=== PATIENT | female | born 1995 | race Caucasian/White ===

== ENCOUNTER → 2016-08-09 | Outpatient (CLI) | payer OTHER ==
[2016-08-09 17:32] LABS: Peanut IgE <0.10 kU/L; Soybean IgE <0.10 kU/L
[2016-08-10 13:45] LABS: Beef IgE <0.35 kU/L (<0.35); Beef IgE Class CLASS 0; Pork IgE Class CLASS 0
[2016-08-10 13:46] LABS: Crab IgE <0.35 kU/L (<0.35); Crab IgE Class CLASS 0; Lettuce IgE Class CLASS 0; Salmon IgE <0.35 kU/L (<0.35); Salmon IgE Class CLASS 0
[2016-08-10 13:47] LABS: Egg Yolk IgE Class CLASS 0; Oat IgE Class CLASS 0; Onion IgE <0.35 kU/L (<0.35); Onion IgE Class CLASS 0; Yeast Bakers/Brew IgE <0.35 kU/L (<0.35); Yeast Bakers/Brew IgE Class CLASS 0
[2016-08-10 13:48] LABS: Avocado Class CLASS 0; Banana IgE Class CLASS 0; Celery IgE <0.35 kU/L (<0.35); Celery IgE Class CLASS 0; Chocolate IgE Class CLASS 0; Cow's Milk IgE Class CLASS 0; Egg White IgE <0.35 kU/L (<0.35); Gluten IgE Class CLASS 0; Hazelnut IgE <0.35 kU/L (<0.35); Hazelnut IgE Class CLASS 0; Kiwi IgE <0.35 kU/L (<0.35); Kiwi IgE Class CLASS 0; Lobster IgE <0.35 kU/L (<0.35); Lobster IgE Class CLASS 0; Peanut IgE <0.35 kU/L (<0.35); Potato IgE <0.35 kU/L (<0.35); Potato IgE Class CLASS 0; Soybean IgE <0.35 kU/L (<0.35)
[2016-08-10 13:49] LABS: Chicken IgE Class CLASS 0; Coffee IgE <0.35 kU/L (<0.35); Coffee IgE Class CLASS 0; Tea IgE <0.35 kU/L (<0.35); Tea IgE Class CLASS 0
== END | disposition home or self-care (01) ==
LOC: LABWHC1 11:27
PROVIDERS: ATTEND Otolaryngology
DX: L50.0 Allergic urticaria (principal)
CPT/HCPCS: 36415; 86003

== ENCOUNTER 2017-04-10 11:47 | Emergency (ER) | payer OTHER ==
[2017-04-10 12:19] VITALS: TEMP 98.2
[2017-04-10] MEDS ORDERED: METOCLOPRAMIDE 5 MG/ML 2 ML VIAL IVP STA (13:33)
[2017-04-10] MEDS ORDERED: SODIUM CHLORIDE 0.9% 1,000 ML IV STA (13:33)
[2017-04-10 14:01] LABS: Basophils % (A) 0 %; CH 31.2; Eosinophils # (A) 0.1 k/uL (0-0.7); Eosinophils % (A) 1 %; HCT 48.9 % (34.0-46.0); HDW 2.18; HGB 15.7 gm/dL (11.4-16.0); Luc # (Auto) 0.15; Luc % (Auto) 2; Lymphocytes # (A) 2.2 k/uL (1.0-4.8); Lymphocytes % (A) 26 %; MCH 31.4 pg (25.0-35.0); Mean Platelet Volume 7.2; Monocytes # (A) 0.5 k/uL (0-1.0); Monocytes % (A) 6 %; Neutrophils # (A) 5.4 k/uL (1.3-7.7); Neutrophils % (A) 65 %; RBC 4.99 m/uL (3.80-5.40); RDW 12.6 % (11.5-15.5); WBC 8.4 k/uL (3.8-10.6); WBC (Perox) 7.98
[2017-04-10 14:05] LABS: Appearance,Urine Cloudy (Clear); Bacteria,Urine Rare /hpf; Bilirubin,Urine Negative (Negative); Glucose,Urine (UA) Negative (Negative); Ketones,Urine Negative (Negative); Leukocyte Esterase,Urine Small (Negative); Nitrite,Urine Negative (Negative); Particle Count 4152; Protein,Urine Trace (Negative); RBC,Urine 1 /hpf (0-5); Squamous Epithelial Cell,Urine 10 /hpf (0-4); UA Billing (MACRO vs. MICRO) MICRO; Urobilinogen,Urine <2.0 mg/dL (<2.0); WBC,Urine 3 /hpf (0-5)
--- NOTE | 2017-04-10 14:08 | ED ---
General Adult HPI - General Chief complaint: Nausea/Vomiting/Diarrhea Stated complaint: Numb hands, face. Vomiting Time Seen by Provider: 04/10/17 13:26 Source: patient, RN notes reviewed Mode of arrival: ambulatory Limitations: physical limitation - History of Present Illness Initial comments: 22-year-old female presents emergency Department chief complaint of left-sided headache. Patient states she has a history of headaches. Patient states that she got her aura which is some numbness and tingling with nausea vomiting and then she developed her left-sided headache that is much like her normal headaches. Patient states she woke this morning with little bit of tunnel vision when she steps so that concerned her. Patient states she's had taken Tylenol but she is unable to keep it down so she thought that she should be seen. Patient denies any other symptoms at this time. Patient states her headache is moderate much like her typical headache to the left side of the head. Patient denies any recent fever, chills, shortness of breath, chest pain, back pain, abdominal pain, nausea vomiting, dysuria or hematuria, constipation or diarrhea, or any other current symptoms. - Related Data Home Medications Medication Instructions Recorded Confirmed Venlafaxine HCl ER [Effexor XR] 75 mg PO DAILY 04/10/17 04/10/17 Allergies Allergy/AdvReac Type Severity Reaction Status Date / Time adhesive tape AdvReac BLISTERS Verified 04/10/17 13:44 cinnamon AdvReac Nausea Verified 04/10/17 12:19 Review of Systems ROS Statement: Those systems with pertinent positive or pertinent negative responses have been documented in the HPI. ROS Other: All systems not noted in ROS Statement are negative. Past Medical History Past Medical History: Asthma History of Any Multi-Drug Resistant Organisms: None Reported Past Surgical History: No Surgical Hx Reported Past Anesthesia/Blood Transfusion Reactions: No Reported Reaction Past Psychological History: No Psychological Hx Reported Smoking Status: Never smoker Past Alcohol Use History: None Reported Past Drug Use History: None Reported - Past Family History Sister(s) History Unknown: Yes Additional Family Medical History / Comment(s): clinical depression General Exam - General Exam Comments Initial Comments: General: The patient is awake and alert, in no distress, and does not appear acutely ill. Eye: Pupils are equal, round and reactive to light, extra-ocular movements are intact; there is normal conjunctiva bilaterally. No signs of icterus. Ears, nose, mouth and throat: There are moist mucous membranes and no oral lesions. Neck: The neck is supple, there is no tenderness. Cardiovascular: There is a regular rate and rhythm. No murmur, rub or gallop is appreciated. Respiratory: Lungs are clear to auscultation, respirations are non-labored, breath sounds are equal. No wheezes, stridor, rales, or rhonchi. Gastrointestinal: Soft, non-distended, non-tender abdomen without masses or organomegaly noted. There is no rebound or guarding present. No CVA tenderness. Bowel sounds are unremarkable. Back: There is no tenderness to palpation in the midline. There is no obvious deformity. No rashes noted. Musculoskeletal: Normal ROM, no tenderness, There is no pedal edema. There is no calf tenderness or swelling. Sensation intact. Pulses equal bilaterally 2+. Neurological: CN II-XII intact, There are no obvious motor or sensory deficits. Coordination appears grossly intact. Speech is normal. Skin: Skin is warm and dry and no rashes or lesions are noted. Psychiatric: Cooperative, appropriate mood & affect, normal judgment. Limitations: physical limitation Course Vital Signs 04/10/17 12:16 Temperature 98.2 F Pulse Rate 60 Respiratory 18 Rate Blood Pressure 111/68 O2 Sat by Pulse 96 Oximetry Medical Decision Making - Medical Decision Making 22-year-old female presents emergency room chief complaint of left-sided headache.at this time patient's headache is completely resolved and she states that she is feeling much better. Nausea vomiting has subsided. We will discharge the patient home. We discussed follow-up return parameters all patient's questions. They state Isaak they're in agreement with plan. They' ll be discharged. - Lab Data Result diagrams: 04/10/17 13:50 04/10/17 13:50 Lab Results 04/10/17 04/10/17 04/10/17 Range/Units 13:50 13:50 13:50 WBC 8.4 (3.8-10.6) k/uL RBC 4.99 (3.80-5.40) m/uL Hgb 15.7 (11.4-16.0) gm/dL Hct 48.9 H (34.0-46.0) % MCV 98.0 (80.0-100.0) fL MCH 31.4 (25.0-35.0) pg MCHC 32.0 (31.0-37.0) g/dL RDW 12.6 (11.5-15.5) % Plt Count 310 (150-450) k/uL Neutrophils % 65 % Lymphocytes % 26 % Monocytes % 6 % Eosinophils % 1 % Basophils % 0 % Neutrophils # 5.4 (1.3-7.7) k/uL Lymphocytes # 2.2 (1.0-4.8) k/uL Monocytes # 0.5 (0-1.0) k/uL Eosinophils # 0.1 (0-0.7) k/uL Basophils # 0.0 (0-0.2) k/uL Sodium 141 (137-145) mmol/L Potassium 4.2 (3.5-5.1) mmol/L Chloride 103 (98-107) mmol/L Carbon Dioxide 28 (22-30) mmol/L Anion Gap 10 mmol/L BUN 13 (7-17) mg/dL Creatinine 0.64 (0.52-1.04) mg/dL Est GFR (MDRD) Af Amer >60 (>60 ml/min/1.73 sqM) Est GFR (MDRD) Non-Af >60 (>60 ml/min/1.73 sqM) Glucose 93 (74-99) mg/dL Calcium 9.9 (8.4-10.2) mg/dL Total Bilirubin 0.3 (0.2-1.3) mg/dL AST 27 (14-36) U/L ALT 36 (9-52) U/L Alkaline Phosphatase 70 (38-126) U/L Total Protein 8.1 (6.3-8.2) g/dL Albumin 4.7 (3.5-5.0) g/dL Urine Color Urine Appearance (Clear) Urine pH (5.0-8.0) Ur Specific [place] (1.001-1.035) Urine Protein (Negative) Urine Glucose (UA) (Negative) Urine Ketones (Negative) Urine Blood (Negative) Urine Nitrite (Negative) Urine Bilirubin (Negative) Urine Urobilinogen (<2.0) mg/dL Ur Leukocyte Esterase (Negative) Urine RBC (0-5) /hpf Urine WBC (0-5) /hpf Ur Squamous Epith Cells (0-4) /hpf Urine Bacteria (None) /hpf Urine HCG, Qual Not Detected (Not Detectd) 04/10/17 Range/Units 13:50 WBC (3.8-10.6) k/uL RBC (3.80-5.40) m/uL Hgb (11.4-16.0) gm/dL Hct (34.0-46.0) % MCV (80.0-100.0) fL MCH (25.0-35.0) pg MCHC (31.0-37.0) g/dL RDW (11.5-15.5) % Plt Count (150-450) k/uL Neutrophils % % Lymphocytes % % Monocytes % % Eosinophils % % Basophils % % Neutrophils # (1.3-7.7) k/uL Lymphocytes # (1.0-4.8) k/uL Monocytes # (0-1.0) k/uL Eosinophils # (0-0.7) k/uL Basophils # (0-0.2) k/uL Sodium (137-145) mmol/L Potassium (3.5-5.1) mmol/L Chloride (98-107) mmol/L Carbon Dioxide (22-30) mmol/L Anion Gap mmol/L BUN (7-17) mg/dL Creatinine (0.52-1.04) mg/dL Est GFR (MDRD) Af Amer (>60 ml/min/1.73 sqM) Est GFR (MDRD) Non-Af (>60 ml/min/1.73 sqM) Glucose (74-99) mg/dL Calcium (8.4-10.2) mg/dL Total Bilirubin (0.2-1.3) mg/dL AST (14-36) U/L ALT (9-52) U/L Alkaline Phosphatase (38-126) U/L Total Protein (6.3-8.2) g/dL Albumin (3.5-5.0) g/dL Urine Color Yellow Urine Appearance Cloudy H (Clear) Urine pH 8.0 (5.0-8.0) Ur Specific [place] 1.020 (1.001-1.035) Urine Protein Trace H (Negative) Urine Glucose (UA) Negative (Negative) Urine Ketones Negative (Negative) Urine Blood Negative (Negative) Urine Nitrite Negative (Negative) Urine Bilirubin Negative (Negative) Urine Urobilinogen <2.0 (<2.0) mg/dL Ur Leukocyte Esterase Small H (Negative) Urine RBC 1 (0-5) /hpf Urine WBC 3 (0-5) /hpf Ur Squamous Epith Cells 10 H (0-4) /hpf Urine Bacteria Rare H (None) /hpf Urine HCG, Qual (Not Detectd) Disposition Clinical Impression: Headache Disposition: HOME SELF-CARE Condition: Stable Instructions: Acute Headache (ED) Additional Instructions: Please use medication as discussed. Please follow up with family doctor if symptoms have not improved over the next two days. Please return to the emergency room if your symptoms increase or worsen or for any other concerns. Referrals: Farzad Guido MD [Primary Care Provider] - 1-2 days Time of Disposition: 14:48
[2017-04-10 14:14] LABS: ALT 36 U/L (9-52); AST 27 U/L (14-36); Alkaline Phosphatase 70 U/L (38-126); Anion Gap 10 mmol/L; Blood Urea Nitrogen 13 mg/dL (7-17); Calcium 9.9 mg/dL (8.4-10.2); Carbon Dioxide 28 mmol/L (22-30); Chloride 103 mmol/L (98-107); Glucose 93 mg/dL (74-99); Non-African American GFR(MDRD) >60 (>60 ml/min/1.73 sqM); Potassium 4.2 mmol/L (3.5-5.1); Sodium 141 mmol/L (137-145); Total Bilirubin 0.3 mg/dL (0.2-1.3); Total Protein 8.1 g/dL (6.3-8.2)
[2017-04-10 15:06] VITALS: BP 107/56; PULSE 65; RESP 16
== END 2017-04-10 15:06 | disposition home or self-care (01) ==
LOC: EC 11:47
DX: R51 Headache (principal); R11.2 Nausea with vomiting, unspecified; R20.2 Paresthesia of skin; Z91.048 Other nonmedicinal substance allergy status; Z91.018 Allergy to other foods; Z79.899 Other long term (current) drug therapy
CPT/HCPCS: 99284 ×2; 96374 ×2; 96361 ×2; 36415; 80053; 85025; 81001; 81025; 87086; J2765

== ENCOUNTER 2017-04-11 18:09 | Emergency (ER) | payer OTHER ==
[2017-04-11 18:35] VITALS: TEMP 98.3
[2017-04-11] MEDS ORDERED: SODIUM CHLORIDE 0.9% 1,000 ML IV ONE (19:19)
[2017-04-11] MEDS ORDERED: DEXAMETHASONE SOD PHOSPHATE 10 MG/ML 1 ML VIAL IV STA (19:19)
[2017-04-11] MEDS ORDERED: diphenhydrAMINE 50 MG/ML 1 ML VIAL IVP STA (19:19)
[2017-04-11] MEDS ORDERED: KETOROLAC 30 MG/ML 1 ML VIAL IVP STA (19:19)
[2017-04-11] MEDS ORDERED: METOCLOPRAMIDE 5 MG/ML 2 ML VIAL IVP STA (19:19)
--- NOTE | 2017-04-11 19:31 | ED ---
General Adult HPI - General Chief complaint: Dizziness Stated complaint: Dizzy/Numbness hands Time Seen by Provider: 04/11/17 19:06 Source: patient Mode of arrival: ambulatory Limitations: no limitations - History of Present Illness Initial comments: Patient is a 22-year-old female who presents with a chief complaint of "tunnel vision" and numbness in her hands and feet. Patient was seen at this facility by another provider yesterday for migraine headache. He states that the symptoms she is having today are typical of her migraine aura though she does not have a headache today. Her visit yesterday were reviewed, patient received a dose of Reglan, felt better, was discharged home. Patient denies any other symptoms. The patient wanted to be reevaluated today because normally her aura symptoms do not last this long. Patient admits to starting a new antidepressant one week ago and thinks that this may be contributing to her symptoms today. - Related Data Home Medications Medication Instructions Recorded Confirmed Venlafaxine HCl ER [Effexor XR] 75 mg PO DAILY 04/10/17 04/11/17 Albuterol Inhaler [Ventolin Hfa 1 - 2 puff INHALATION RT-Q6H PRN 04/11/17 Inhaler] Ibuprofen [Motrin] 400 mg PO TID PRN 04/11/17 04/11/17 Allergies Allergy/AdvReac Type Severity Reaction Status Date / Time adhesive tape Allergy Rash/Hives Verified 04/11/17 19:24 cinnamon AdvReac Abdominal Verified 04/11/17 19:24 Pain Review of Systems ROS Statement: Those systems with pertinent positive or pertinent negative responses have been documented in the HPI. ROS Other: All systems not noted in ROS Statement are negative. Constitutional: Denies: fever Eyes: Reports: vision change ENT: Denies: congestion Respiratory: Denies: cough Cardiovascular: Denies: chest pain Endocrine: Denies: fatigue Gastrointestinal: Denies: abdominal pain, nausea, vomiting Genitourinary: Denies: dysuria Musculoskeletal: Denies: back pain Skin: Denies: lesions Neurological: Reports: headache, numbness Psychiatric: Reports: as per HPI Past Medical History Past Medical History: Asthma History of Any Multi-Drug Resistant Organisms: None Reported Past Surgical History: No Surgical Hx Reported Past Anesthesia/Blood Transfusion Reactions: No Reported Reaction Past Psychological History: No Psychological Hx Reported Smoking Status: Never smoker Past Alcohol Use History: None Reported Past Drug Use History: None Reported - Past Family History Sister(s) History Unknown: Yes Additional Family Medical History / Comment(s): clinical depression General Exam Limitations: no limitations General appearance: alert, in no apparent distress Head exam: Present: atraumatic, normocephalic Eye exam: Present: normal appearance Neck exam: Present: normal inspection Respiratory exam: Present: normal lung sounds bilaterally Cardiovascular Exam: Present: regular rate, normal rhythm, normal heart sounds GI/Abdominal exam: Present: soft. Absent: distended, tenderness, guarding Rectal exam: Present: deferred Neurological exam: Present: alert, oriented X3, CN II-XII intact, normal gait, other (Patient has a negative Romberg, negative cerebellar testing.). Absent: motor sensory deficit Psychiatric exam: Present: normal affect, normal mood Skin exam: Present: warm, dry, intact Course Vital Signs 04/11/17 04/11/17 18:33 19:40 Temperature 98.3 F Pulse Rate 71 67 Respiratory 16 18 Rate Blood Pressure 127/80 99/58 O2 Sat by Pulse 98 97 Oximetry Medical Decision Making - Medical Decision Making Patient presents with chief complaint of tunnel vision, and numbness in her hands and feet. Patient is a history of migraine headaches for which the symptoms are a common aura. Patient was seen and treated for migraine headache yesterday. Patient denies any headache today though she states her prodromal symptoms persist. Patient recently started a new antidepressant which may be playing into patient's presentation today. Review of yesterday's visit reveals a normal laboratory examination. I discussed further testing with the patient today, specifically a computed tomography scan of the head, though I stated that given the patient's symptoms and her course of onset, it is less likely that there is a central neurologic problem. Patient and her mother would like to proceed with a CAT scan today. Patient will be given Toradol, Reglan, Benadryl, Decadron, and a liter of IV fluids or treatment of migraine symptoms. 8:[address] evaluation of the head is negative. On reexamination, patient states that her symptoms are improving. At this time, the patient and her mother are agreeable with discharge. They're instructed to follow up with primary care and neurology if needed. I discussed follow-up with the new antidepressant medication with the patient and advised that she be seen within the next few days. At this time, patient is stable for discharge. Disposition Clinical Impression: Numbness and tingling, Migraine headache with aura Disposition: HOME SELF-CARE Condition: Good Instructions: Migraine Headache (ED) Referrals: Farzad Guido MD [Primary Care Provider] - 1-2 days
[2017-04-11 19:46] VITALS: RESP 18
--- NOTE | 2017-04-11 20:28 | CT ---
EXAMINATION TYPE: CT brain wo con DATE OF EXAM: 04/11/2017 COMPARISON: 06/22/2016 HISTORY: Headache CT DLP: 945 mGycm. Automated Exposure Control for Dose Reduction was Utilized. TECHNIQUE: CT scan of the head is performed without contrast. FINDINGS: Ventricles have normal size. There is no mass effect nor midline shift. There is no sign of intracranial hemorrhage. The calvarium is intact. CONCLUSION: Negative CT scan of the brain. No change.
[2017-04-11 21:10] VITALS: BP 123/80; PULSE 82
== END 2017-04-11 21:14 | disposition home or self-care (01) ==
LOC: EC 18:09
DX: G43.109 Migraine with aura, not intractable, without status migrainosus (principal); Z79.899 Other long term (current) drug therapy; Z91.048 Other nonmedicinal substance allergy status
CPT/HCPCS: 99284 ×2; 96374 ×2; 96375 ×4; 96361 ×2; 70450; J1200; J1100; J2765; J1885

== ENCOUNTER → 2018-02-14 | Outpatient (CLI) | payer OTHER ==
[2018-02-14 18:10] LABS: Shrimp IgE <0.10 kU/L; Walnut IgE (Food) <0.10 kU/L
[2018-02-15 13:26] LABS: Crab IgE <0.35 kU/L (<0.35); Crab IgE Class CLASS 0
[2018-02-15 13:27] LABS: Beef IgE <0.35 kU/L (<0.35); Beef IgE Class CLASS 0; Pork IgE Class CLASS 0
[2018-02-15 13:28] LABS: Chicken IgE Class CLASS 0; Latex IgE Class CLASS 0; Lobster IgE <0.35 kU/L (<0.35); Lobster IgE Class CLASS 0; Salmon IgE <0.35 kU/L (<0.35); Salmon IgE Class CLASS 0; Yeast Bakers/Brew IgE <0.35 kU/L (<0.35)
[2018-02-15 13:29] LABS: Avocado Class CLASS 0; Banana IgE Class CLASS 0; Cow's Milk IgE Class CLASS 0; Egg White IgE <0.35 kU/L (<0.35); Hazelnut IgE <0.35 kU/L (<0.35); Hazelnut IgE Class CLASS 0; Kiwi IgE <0.35 kU/L (<0.35); Peanut IgE <0.35 kU/L (<0.35); Potato IgE <0.35 kU/L (<0.35); Potato IgE Class CLASS 0; Soybean IgE <0.35 kU/L (<0.35)
== END | disposition home or self-care (01) ==
LOC: LABWHC1 10:12
PROVIDERS: ATTEND Otolaryngology
DX: L50.0 Allergic urticaria (principal)
CPT/HCPCS: 36415; 86003

== ENCOUNTER → 2018-02-20 | Outpatient (CLI) | payer OTHER | END | disposition home or self-care (01) | LOC: LABWHC1 13:31 | PROVIDERS: ATTEND Otolaryngology | DX: L50.0 Allergic urticaria (principal) | CPT/HCPCS: 36415 ==

== ENCOUNTER 2018-03-26 13:31 | Emergency (ER) | payer OTHER ==
[2018-03-26] MEDS ORDERED: predniSONE 20 MG TAB PO STA (13:37)
[2018-03-26] MEDS ORDERED: FAMOTIDINE 20 MG TAB PO STA (13:38)
[2018-03-26 13:41] VITALS: RESP 18
--- NOTE | 2018-03-26 13:42 | ED ---
Allergic Reaction HPI - General Stated complaint: allergic reaction Time Seen by Provider: 03/26/18 13:33 Source: patient, RN notes reviewed Mode of arrival: EMS Limitations: no limitations - History of Present Illness Initial Comments: 22-year-old female presented emergency Department via EMS chief complaint ALLERGIC reaction. Patient states she was at [employer] eating a chicken nausea and states that she started feeling flushed and felt itchy all over. Patient states that this is beginning of her known ALLERGIC reactions that she' s had. She states she has ALLERGIC reaction to soy products. Patient had extensive evaluation by ENT in the past. Patient was given 50 mg of Benadryl IM states his symptoms are improving at this time. Denies any difficulty breathing typically swelling. - Related Data Home Medications Medication Instructions Recorded Confirmed No Known Home Medications 03/26/18 03/26/18 Allergies Allergy/AdvReac Type Severity Reaction Status Date / Time adhesive tape Allergy Rash/Hives Verified 03/26/18 13:46 cinnamon AdvReac Abdominal Verified 03/26/18 13:46 Pain soy AdvReac Abdominal Verified 03/26/18 13:46 Pain Review of Systems ROS Statement: Those systems with pertinent positive or pertinent negative responses have been documented in the HPI. ROS Other: All systems not noted in ROS Statement are negative. Past Medical History Past Medical History: Asthma History of Any Multi-Drug Resistant Organisms: None Reported Past Surgical History: No Surgical Hx Reported Past Anesthesia/Blood Transfusion Reactions: No Reported Reaction Past Psychological History: Anxiety Smoking Status: Never smoker Past Alcohol Use History: None Reported Past Drug Use History: None Reported - Past Family History Sister(s) History Unknown: Yes Additional Family Medical History / Comment(s): clinical depression General Exam Limitations: no limitations General appearance: alert, in no apparent distress Head exam: Present: atraumatic, normocephalic, normal inspection Eye exam: Present: normal appearance, PERRL, EOMI. Absent: scleral icterus, conjunctival injection, periorbital swelling ENT exam: Present: normal exam, normal oropharynx, mucous membranes moist, TM's normal bilaterally, normal external ear exam Neck exam: Present: normal inspection, full ROM. Absent: tenderness, meningismus, lymphadenopathy Respiratory exam: Present: normal lung sounds bilaterally. Absent: respiratory distress, wheezes, rales, rhonchi, stridor Cardiovascular Exam: Present: regular rate, normal rhythm, normal heart sounds. Absent: systolic murmur, diastolic murmur, rubs, gallop, clicks Skin exam: Present: warm, dry, intact, normal color, urticaria (Finger. Noted on her chest and anterior neck region). Absent: rash Course Vital Signs 03/26/18 03/26/18 03/26/18 13:36 14:06 14:13 Temperature 99.3 F Pulse Rate 88 69 Respiratory 18 18 18 Rate Blood Pressure 114/79 O2 Sat by Pulse 98 99 Oximetry Medical Decision Making - Medical Decision Making 22-year-old female presents emergency department for ALLERGIC reaction. Patient had improvement prior arrival with Benadryl IM. Patient was given additional prednisone and Pepcid emergency department. Patient is symptom- free. She'll continue Benadryl 50 mg every 6 hours at home return for any worsening symptoms. Patient does have an EpiPen at home. Disposition Clinical Impression: Allergic reaction Disposition: HOME SELF-CARE Condition: Stable Instructions: General Allergic Reaction (ED) Additional Instructions: Please return to the Emergency Department if symptoms worsen or any other concerns. Is patient prescribed a controlled substance at d/c from ED?: No Referrals: Farzad Guido MD [Primary Care Provider] - 1-2 days Time of Disposition: 14:21
[2018-03-26 14:34] VITALS: BP 105/70; PULSE 86; TEMP 98.7
== END 2018-03-26 14:32 | disposition home or self-care (01) ==
LOC: EC 13:31
DX: T78.1XXA Other adverse food reactions, not elsewhere classified, initial encounter (principal); Z91.018 Allergy to other foods; Z91.048 Other nonmedicinal substance allergy status
CPT/HCPCS: 99284; J7512

== ENCOUNTER → 2018-04-29 | Outpatient (CLI) | payer OTHER ==
--- NOTE | 2018-04-30 08:19 | USB ---
Reason for exam: clinical finding. History: Family history of breast cancer in paternal grandmother at age 50. Indicated problem(s): pain in the right breast. Physical Findings: Nurse Summary: right breast palpable 11 o'clock, 0.5 x 1cm, tender, movable, bilateral tenderness on exam (nurse ts). US Breast RT Right complete breast ultrasound includes all four quadrants, the retroareolar region and axilla. Finding demonstrates no cystic or solid lesion seen. These results were verbally communicated with the patient and result sheet given to the patient on 04/29/18. ASSESSMENT: Negative, BI-RAD 1 RECOMMENDATION: Clinical management of the right breast. Manage patient on a clinical basis.
== END | disposition home or self-care (01) ==
LOC: RADUSWWP 14:50
PROVIDERS: ATTEND Pediatrics
DX: N64.4 Mastodynia (principal)

== ENCOUNTER 2018-07-03 12:36 | Emergency (ER) | payer OTHER ==
[2018-07-03 13:11] VITALS: RESP 18
[2018-07-03 14:17] LABS: ALT 25 U/L (9-52); AST 33 U/L (14-36); Albumin 3.9 g/dL (3.5-5.0); Alkaline Phosphatase 53 U/L (38-126); Amylase 98 U/L (30-110); Anion Gap 9 mmol/L; Blood Urea Nitrogen 13 mg/dL (7-17); Calcium 9.5 mg/dL (8.4-10.2); Carbon Dioxide 24 mmol/L (22-30); Chloride 108 mmol/L (98-107); Glucose 82 mg/dL (74-99); Lipase 92 U/L (23-300); Sodium 141 mmol/L (137-145); Total Bilirubin 0.5 mg/dL (0.2-1.3); Total Protein 6.8 g/dL (6.3-8.2)
[2018-07-03 14:23] LABS: Potassium 4.2 mmol/L (3.5-5.1)
[2018-07-03 14:29] LABS: Basophils % (A) 0 %; Eosinophils # (A) 0.2 k/uL (0-0.7); Eosinophils % (A) 2 %; HCT 49.4 % (34.0-46.0); HGB 16.1 gm/dL (11.4-16.0); Lymphocytes # (A) 2.3 k/uL (1.0-4.8); Lymphocytes % (A) 25 %; MCH 30.7 pg (25.0-35.0); MCHC 32.6 g/dL (31.0-37.0); MCV 94.1 fL (80.0-100.0); Mean Platelet Volume 7.8; Monocytes # (A) 0.7 k/uL (0-1.0); Monocytes % (A) 7 %; Neutrophils # (A) 5.9 k/uL (1.3-7.7); Neutrophils % (A) 64 %; Platelet Count 252 k/uL (150-450); RBC 5.25 m/uL (3.80-5.40); RDW 12.7 % (11.5-15.5); WBC 9.2 k/uL (3.8-10.6)
[2018-07-03] MEDS ORDERED: SODIUM CHLORIDE 0.9% 1,000 ML IV ONE (15:25)
[2018-07-03 15:33] LABS: Appearance,Urine Cloudy (Clear); Bacteria,Urine Rare /hpf; Bilirubin,Urine Negative (Negative); Blood,Urine Negative (Negative); Color,Urine Light Yellow; Glucose,Urine (UA) Negative (Negative); Ketones,Urine Negative (Negative); Leukocyte Esterase,Urine Moderate (Negative); Mucus,Urine Rare /hpf; Nitrite,Urine Negative (Negative); Protein,Urine Negative (Negative); Specific Gravity,Urine 1.007 (1.001-1.035); Squamous Epithelial Cell,Urine 7 /hpf (0-4); Urobilinogen,Urine <2.0 mg/dL (<2.0); WBC,Urine 1 /hpf (0-5)
[2018-07-03 16:02] VITALS: BP 106/65; PULSE 87; TEMP 97.9
--- NOTE | 2018-07-03 16:23 | US ---
EXAMINATION TYPE: US pelvic complete DATE OF EXAM: 07/03/2018 COMPARISON: NONE CLINICAL HISTORY: Pelvic pain. TECHNIQUE: Transvaginal (TV). Date of LMP: 06/27/18 EXAM MEASUREMENTS: Uterus: 9.1 x 4.0 x 4.8 cm Endometrial Stripe: 1.0 cm Right Ovary: 3.2 x 1.8 x 2.2 cm Left Ovary: 2.6 x 1.8 x 1.3 cm 1. Uterus: Anteverted 2. Endometrium: wnl 3. Right Ovary: wnl 4. Left Ovary: wnl Spectral, color and waveform doppler imaging shows good arterial and venous flow within the ovaries ; there is no evidence for ovarian torsion. 5. Bilateral Adnexa: wnl 6. Posterior cul-de-sac: wnl IMPRESSION: Unremarkable pelvic ultrasound with physiologic follicular changes of the ovaries.
--- NOTE | 2018-07-03 16:43 | ED ---
General Adult HPI - General Chief complaint: Abdominal Pain Stated complaint: LOWER ABDOMINAL PAIN, POSS EPTOPIC Source: patient Mode of arrival: ambulatory Limitations: no limitations - History of Present Illness Initial comments: 23-year-old female presenting today for lower pelvic cramping, spotting and n/v. Pt states she has had lower pelvic cramping for the past 5 days. She states she also has had nausea and vomiting. Pt states she feels as though she is . Pt was also concerned giving the lower abdominal pain that she having an ectopic . She states she was told by a friend that this is possible. Patient states the last menstrual period was 2 days ago however it was sure it did not appear to be consistent with her usual period. Patient states that the lower pelvic cramping is bilateral without radiation. Patient denies any upper abdominal pain, or right lower quadrant pain. Patient states when laying flat the pain increases however with ambulation or moving around seems to get better. Patient denies any diarrhea, fever, chills, night sweats, melena or hematochezia urgency, vaginal discharge, pain with sex. Remainder of ROS negative, patient denies any recent shortness of breath, chest pain, back pain, numbness or tingling, dysuria or hematuria, constipation, headaches or visual changes, or any other complaints. Upon arrival pt is well appearing, no signs of distress. Patient is a ambulating around room chasing daughter, bending and moving without any signs of acute abdominal pain or discomfort. - Related Data Home Medications Medication Instructions Recorded Confirmed No Known Home Medications 03/26/18 07/03/18 Allergies Allergy/AdvReac Type Severity Reaction Status Date / Time adhesive tape Allergy Rash/Hives Verified 07/03/18 14:37 cinnamon AdvReac Abdominal Verified 07/03/18 14:37 Pain soy AdvReac Abdominal Verified 07/03/18 14:37 Pain Review of Systems ROS Statement: Those systems with pertinent positive or pertinent negative responses have been documented in the HPI. ROS Other: All systems not noted in ROS Statement are negative. Past Medical History Past Medical History: Asthma History of Any Multi-Drug Resistant Organisms: None Reported Past Surgical History: No Surgical Hx Reported Past Anesthesia/Blood Transfusion Reactions: No Reported Reaction Past Psychological History: Anxiety Smoking Status: Never smoker Past Alcohol Use History: None Reported Past Drug Use History: None Reported - Past Family History Sister(s) History Unknown: Yes Additional Family Medical History / Comment(s): clinical depression General Exam - General Exam Comments Initial Comments: General: The patient is awake and alert, in no distress, and does not appear acutely ill. Eye: +3 mm pupils are equal, round and reactive to light, extra-ocular movements are intact. No nystagmus. There is normal conjunctiva bilaterally. No signs of icterus. Ears, nose, mouth and throat: There are moist mucous membranes and no oral lesions. Neck: The neck is supple, there is no tenderness or JVD. Cardiovascular: There is a regular rate and rhythm. No murmur, rub or gallop is appreciated. Respiratory: Lungs are clear to auscultation, respirations are non-labored, breath sounds are equal. No wheezes, stridor, rales, or rhonchi. Gastrointestinal: No noted diaphoresis, jaundice, pallor, protecting postures or squirming. Symmetrical pigmentation of abdomen without signs of inflammation.. Umbilicus mildline, inverted without swelling. No dilated veins. Abdomen contour obese, no noted abdominal distention. No visible masses. No peristalsis, aortic pulsations, or ventral hernia. Bowel sounds audible in all 4 quadrants, unremarkable. No friction rubs or venous hums. No epigastic, hepatic or abdominal bruits. Tenderness to palpation of the pelvic region b/l. No RLQ pain or upper abdominal pain to deep palpation. No rigidity or guarding. Liver edge , not palpable. Spleen edge, right and left kidney not palpable. Superior bladder margin non-tender. Special Testing: Negative [place], Rovsing, McBurney, Abdirahman. Iliopsoas negative bilaterally. Negative Heel Jar test. No CVA tenderness. Digital rectal exam deferred. Negative islas turners or cullens sign Musculoskeletal: Normal ROM, no tenderness. Strength 5/5. Sensation intact. Pulses equal bilaterally 2+. Neurological: A&O x 3. CN II-XII intact, There are no obvious motor or sensory deficits. Coordination appears grossly intact. Speech is normal. Skin: Skin is warm and dry and no rashes or lesions are noted. Psychiatric: Cooperative, appropriate mood & affect, normal judgment. Pelvic exam: Patient has shaved pubic hair, female hair pattern noted. No noted external vaginal lesions. Internal exam revealed pink moist mucosa while rugated. No evidence of blood in vault. Very small amount of discharge and appears thin, clear/white without odor. No discharge From the os.. No Cervical Motion Tenderness. Mild bilateral adnexal tenderness. No palpable masses. No noted uterine enlargement. Limitations: no limitations Course Vital Signs 07/03/18 07/03/18 13:08 16:01 Temperature 98.1 F 97.9 F Pulse Rate 65 87 Respiratory 18 18 Rate Blood Pressure 115/77 106/65 O2 Sat by Pulse 98 99 Oximetry Medical Decision Making - Medical Decision Making Laboratory studies unremarkable. HCG negative. Urinalysis was not a clean catch. Pending urine culture. Patient denies any urgency, frequency, dysuria or hematuria. Pelvic exam revealed a small amount discharge, cultures pending. Pelvic ultrasound within normal limits, no evidence of ectopic or torsion. No findings at abdominal exam concerning for acute abdomen. No RLQ pain (-) McBurneys. Patient is ambulating, bending twisting no signs of distress. Patient appears comfortable in bed. Patient refused any types of pain medication. Patient is requesting discharge. At this time do feel patient is stable for discharge with follow-up in the next 1-2 days with primary care provider and immediate return for any worsening or persistent abdominal pain or any other concerning symptoms. Patient verbalizes understanding. Case discussed with Dr. Nickerson who agreed with impression and plan , patient was discharged in stable condition appearing well. - Lab Data Result diagrams: 07/03/18 13:41 07/03/18 13:41 Lab Results 07/03/18 07/03/18 07/03/18 Range/Units 13:41 13:41 15:10 WBC 9.2 (3.8-10.6) k/uL RBC 5.25 (3.80-5.40) m/uL Hgb 16.1 H (11.4-16.0) gm/dL Hct 49.4 H (34.0-46.0) % MCV 94.1 (80.0-100.0) fL MCH 30.7 (25.0-35.0) pg MCHC 32.6 (31.0-37.0) g/dL RDW 12.7 (11.5-15.5) % Plt Count 252 (150-450) k/uL Neutrophils % 64 % Lymphocytes % 25 % Monocytes % 7 % Eosinophils % 2 % Basophils % 0 % Neutrophils # 5.9 (1.3-7.7) k/uL Lymphocytes # 2.3 (1.0-4.8) k/uL Monocytes # 0.7 (0-1.0) k/uL Eosinophils # 0.2 (0-0.7) k/uL Basophils # 0.0 (0-0.2) k/uL Sodium 141 (137-145) mmol/L Potassium 4.2 (3.5-5.1) mmol/L Chloride 108 H (98-107) mmol/L Carbon Dioxide 24 (22-30) mmol/L Anion Gap 9 mmol/L BUN 13 (7-17) mg/dL Creatinine 0.60 (0.52-1.04) mg/dL Est GFR (CKD-EPI)AfAm >90 (>60 ml/min/1.73 sqM) Est GFR (CKD-EPI)NonAf >90 (>60 ml/min/1.73 sqM) Glucose 82 (74-99) mg/dL Calcium 9.5 (8.4-10.2) mg/dL Total Bilirubin 0.5 (0.2-1.3) mg/dL AST 33 (14-36) U/L ALT 25 (9-52) U/L Alkaline Phosphatase 53 (38-126) U/L Total Protein 6.8 (6.3-8.2) g/dL Albumin 3.9 (3.5-5.0) g/dL Amylase 98 (30-110) U/L Lipase 92 (23-300) U/L Urine Color Urine Appearance (Clear) Urine pH (5.0-8.0) Ur Specific [place] (1.001-1.035) Urine Protein (Negative) Urine Glucose (UA) (Negative) Urine Ketones (Negative) Urine Blood (Negative) Urine Nitrite (Negative) Urine Bilirubin (Negative) Urine Urobilinogen (<2.0) mg/dL Ur Leukocyte Esterase (Negative) Urine WBC (0-5) /hpf Ur Squamous Epith Cells (0-4) /hpf Urine Bacteria (None) /hpf Urine Mucus (None) /hpf Urine HCG, Qual Not Detected (Not Detectd) Trichomonas Ag (Rapid) (Negative) 07/03/18 07/03/18 Range/Units 15:10 16:45 WBC (3.8-10.6) k/uL RBC (3.80-5.40) m/uL Hgb (11.4-16.0) gm/dL Hct (34.0-46.0) % MCV (80.0-100.0) fL MCH (25.0-35.0) pg MCHC (31.0-37.0) g/dL RDW (11.5-15.5) % Plt Count (150-450) k/uL Neutrophils % % Lymphocytes % % Monocytes % % Eosinophils % % Basophils % % Neutrophils # (1.3-7.7) k/uL Lymphocytes # (1.0-4.8) k/uL Monocytes # (0-1.0) k/uL Eosinophils # (0-0.7) k/uL Basophils # (0-0.2) k/uL Sodium (137-145) mmol/L Potassium (3.5-5.1) mmol/L Chloride (98-107) mmol/L Carbon Dioxide (22-30) mmol/L Anion Gap mmol/L BUN (7-17) mg/dL Creatinine (0.52-1.04) mg/dL Est GFR (CKD-EPI)AfAm (>60 ml/min/1.73 sqM) Est GFR (CKD-EPI)NonAf (>60 ml/min/1.73 sqM) Glucose (74-99) mg/dL Calcium (8.4-10.2) mg/dL Total Bilirubin (0.2-1.3) mg/dL AST (14-36) U/L ALT (9-52) U/L Alkaline Phosphatase (38-126) U/L Total Protein (6.3-8.2) g/dL Albumin (3.5-5.0) g/dL Amylase (30-110) U/L Lipase (23-300) U/L Urine Color Light Yellow Urine Appearance Cloudy H (Clear) Urine pH 7.0 (5.0-8.0) Ur Specific [place] 1.007 (1.001-1.035) Urine Protein Negative (Negative) Urine Glucose (UA) Negative (Negative) Urine Ketones Negative (Negative) Urine Blood Negative (Negative) Urine Nitrite Negative (Negative) Urine Bilirubin Negative (Negative) Urine Urobilinogen <2.0 (<2.0) mg/dL Ur Leukocyte Esterase Moderate H (Negative) Urine WBC 1 (0-5) /hpf Ur Squamous Epith Cells 7 H (0-4) /hpf Urine Bacteria Rare H (None) /hpf Urine Mucus Rare H (None) /hpf Urine HCG, Qual (Not Detectd) Trichomonas Ag (Rapid) Negative (Negative) Disposition Clinical Impression: Pelvic pain Disposition: HOME SELF-CARE Condition: Good Instructions: Pelvic Pain in Women (ED) Additional Instructions: Please use over the counter medication as discussed. Please follow-up with family doctor in the next 2 days. Please return to emergency room if the symptoms increase or worsen or for any other concerns, as discussed including immediate return for worsening pain. Is patient prescribed a controlled substance at d/c from ED?: No Referrals: Jimy Horner MD [Primary Care Provider] - 1-2 days Time of Disposition: 16:42
[2018-07-04 14:44] LABS: C. trachomatis,PCR Negative (Neg,Equiv); Chlamydia trachomatis Source Vagina; N. gonorrhoeae,PCR Negative (Neg,Equiv); Neisseria Source Vagina
== END 2018-07-03 16:50 | disposition home or self-care (01) ==
LOC: EC 12:36
DX: R10.2 Pelvic and perineal pain (principal); R11.2 Nausea with vomiting, unspecified; N89.8 Other specified noninflammatory disorders of vagina; Z91.048 Other nonmedicinal substance allergy status; Z91.018 Allergy to other foods; Z53.8 Procedure and treatment not carried out for other reasons
CPT/HCPCS: 36415; 76830; 80053; 81001; 81025; 82150; 83690; 85025; 87070; 87205; 87491; 87591; 87808; 93975; 99284

== ENCOUNTER → 2020-06-03 | Outpatient (CLI) | payer OTHER ==
--- NOTE | 2020-06-03 14:50 | MR ---
EXAMINATION TYPE: MR pituitary wo/w con DATE OF EXAM: 06/03/2020 COMPARISON: CT brain April 11, 2017 HISTORY: Galactorrhea TECHNIQUE: Multiplanar, multisequence images of the brain and brainstem is performed without and with IV contras t, utilizing 7.5 mL intravenous Gadavist . Pituitary gland protocol. FINDINGS: Pituitary gland remains within normal limits in size for patient's age and female gender wi th superior concave border. Suprasellar cistern is maintained. Optic chiasm is not effaced. Pituitary stalk shows normal enhancement in the midline coronal images 11 and 12. Postcontrast images show loreto rly homogeneous enhancement without definitive area of nonenhancement to suggest microadenoma. Craniocervical junction is maintained. No gross hydrocephalus. Normal vascular flow voids centrally. IMPRESSION: No MRI evidence for pituitary microadenoma or macroadenoma.
== END | disposition home or self-care (01) ==
LOC: RADMRIMAIN 11:56
PROVIDERS: ATTEND Physician Assistant
DX: O92.6 Galactorrhea (principal)
CPT/HCPCS: 70553; A9585

== ENCOUNTER → 2020-06-21 | Outpatient (CLI) | payer OTHER ==
--- NOTE | 2020-06-22 09:38 | USB ---
Reason for exam: clinical finding. History: Family history of breast cancer in paternal grandmother at age 50. Indicated problem(s): non-bloody discharge in the right breast. Physical Findings: Nurse Summary: 0.5cm palpable (nurse db). US Breast RT Right complete breast ultrasound includes all four quadrants, the retroareolar region and axilla. Finding demonstrates dilated ducts at nipple. These results were verbally communicated with the patient and result sheet given to the patient on 06/21/20. ASSESSMENT: Benign, BI-RAD 2 RECOMMENDATION: Routine screening mammogram of both breasts at age 41. Manage patient on a clinical basis.
== END | disposition home or self-care (01) ==
LOC: RADUSWWP 14:10
PROVIDERS: ATTEND Physician Assistant
DX: O92.6 Galactorrhea (principal)

== ENCOUNTER 2020-08-15 22:22 | Emergency (ER) | payer OTHER ==
[2020-08-15 22:34] VITALS: TEMP 98.2
[2020-08-15] MEDS ORDERED: SODIUM CHLORIDE 0.9% 1,000 ML IV STA (22:46)
[2020-08-15] MEDS ORDERED: KETOROLAC 15 MG/ML 1 ML VIAL IVP STA (22:46)
[2020-08-15] MEDS ORDERED: diphenhydrAMINE 50 MG/ML 1 ML VIAL IVP STA (22:46)
[2020-08-15] MEDS ORDERED: PROCHLORPERAZINE INJ 10 MG/2 ML VIAL IVP STA (22:46)
--- NOTE | 2020-08-15 22:50 | ED ---
Headache HPI - General Chief Complaint: Headache Stated Complaint: Migraine,vomiting Time Seen by Provider: 08/15/20 22:45 Source: RN notes reviewed, old records reviewed Mode of arrival: wheelchair Limitations: no limitations - History of Present Illness Initial Comments: This is a 25-year-old female DF for evaluation. Patient presents today for evaluation regards to headaches. History of headaches migraines and is experiencing on television usually brought on by stress history since childhood. Patient presents with mom who states history of the same. Patient is giving a poor history she doesn't seem interested in answering history taking questions. Mom answers most questions MD Complaint: headache, "migraine" -: hour(s) Onset Description: gradual Location: frontal Severity: moderate Severity scale (1-10): 7 Quality: aching Consistency: constant Improves With: nothing Worsens With: none Context: occurred at rest, other (Recent stress) Associated Symptoms: nausea, vomiting Other Symptoms: other (None) Treatments Prior to Arrival: none, other (None) - Related Data Previous Rx's Medication Instructions Recorded metroNIDAZOLE 0.75% VAGINAL 1 applic VAGINAL HS 5 Days #5 tube 07/09/18 [Metrogel Vaginal] Allergies Allergy/AdvReac Type Severity Reaction Status Date / Time adhesive tape Allergy Rash/Hives Verified 07/03/18 14:37 gluten Allergy Nausea & Verified 08/15/20 22:34 Vomiting & Diarrhea cinnamon AdvReac Abdominal Verified 07/03/18 14:37 Pain soy AdvReac Abdominal Verified 07/03/18 14:37 Pain Review of Systems ROS Statement: Those systems with pertinent positive or pertinent negative responses have been documented in the HPI. ROS Other: All systems not noted in ROS Statement are negative. Past Medical History Past Medical History: Asthma History of Any Multi-Drug Resistant Organisms: None Reported Past Surgical History: No Surgical Hx Reported Past Anesthesia/Blood Transfusion Reactions: No Reported Reaction Past Psychological History: Anxiety, Depression Smoking Status: Never smoker Past Alcohol Use History: None Reported Past Drug Use History: Marijuana - Past Family History Sister(s) History Unknown: Yes Additional Family Medical History / Comment(s): clinical depression General Exam Limitations: no limitations General appearance: alert, in no apparent distress Head exam: Present: atraumatic, normocephalic, normal inspection Eye exam: Present: normal appearance, PERRL, EOMI. Absent: scleral icterus, conjunctival injection, periorbital swelling ENT exam: Present: normal exam, mucous membranes moist Neck exam: Present: normal inspection. Absent: tenderness, meningismus, lymphadenopathy Respiratory exam: Present: normal lung sounds bilaterally. Absent: respiratory distress, wheezes, rales, rhonchi, stridor Cardiovascular Exam: Present: regular rate, normal rhythm, normal heart sounds. Absent: systolic murmur, diastolic murmur, rubs, gallop, clicks GI/Abdominal exam: Present: soft, normal bowel sounds. Absent: distended, tenderness, guarding, rebound, rigid Extremities exam: Present: normal inspection, full ROM, normal capillary refill. Absent: tenderness, pedal edema, joint swelling, calf tenderness Back exam: Present: normal inspection Neurological exam: Present: alert, oriented X3, CN II-XII intact Psychiatric exam: Present: normal affect, normal mood Skin exam: Present: warm, dry, intact, normal color. Absent: rash Course Vital Signs 08/15/20 08/16/20 22:32 00:53 Temperature 98.2 F Pulse Rate 90 98 Respiratory 18 16 Rate Blood Pressure 109/76 109/69 O2 Sat by Pulse 97 99 Oximetry - Reevaluation(s) Reevaluation #1: 08/16/20 00:22 Medical record is reviewed Patient resting comfortably headache is resolved Medical Decision Making - Medical Decision Making 25 female here with recurrent headaches. Patient here in the ER no distress, feeling better at this time he can be discharged home, mother to take patient home - Lab Data Lab Results 08/15/20 08/15/20 Range/Units 23:23 23:23 Urine Color Light Red Urine Appearance Cloudy H (Clear) Urine pH 8.5 H (5.0-8.0) Ur Specific [place] 1.029 (1.001-1.035) Urine Protein 2+ H (Negative) Urine Glucose (UA) Negative (Negative) Urine Ketones Negative (Negative) Urine Blood Large H (Negative) Urine Nitrite Negative (Negative) Urine Bilirubin Negative (Negative) Urine Urobilinogen <2.0 (<2.0) mg/dL Ur Leukocyte Esterase Small H (Negative) Urine RBC >182 H (0-5) /hpf Urine WBC 12 H (0-5) /hpf Ur Squamous Epith Cells 12 H (0-4) /hpf Urine Mucus Few H (None) /hpf Urine HCG, Qual Not Detected (Not Detectd) Disposition Clinical Impression: Headache, Migraine headache Disposition: HOME SELF-CARE Condition: Good Instructions (If sedation given, give patient instructions): Acute Headache (ED) Is patient prescribed a controlled substance at d/c from ED?: No Referrals: Jimy Horner MD [Primary Care Provider] - 1-2 days
[2020-08-15 23:35] LABS: Appearance,Urine Cloudy (Clear); Bilirubin,Urine Negative (Negative); Blood,Urine Large (Negative); Color,Urine Light Red; Glucose,Urine (UA) Negative (Negative); Ketones,Urine Negative (Negative); Leukocyte Esterase,Urine Small (Negative); Mucus,Urine Few /hpf; Nitrite,Urine Negative (Negative); PH, Urine 8.5 (5.0-8.0); Protein,Urine 2+ (Negative); RBC,Urine >182 /hpf (0-5); Specific Gravity,Urine 1.029 (1.001-1.035); Squamous Epithelial Cell,Urine 12 /hpf (0-4); Urobilinogen,Urine <2.0 mg/dL (<2.0); WBC,Urine 12 /hpf (0-5)
[2020-08-16 01:15] VITALS: BP 109/69; PULSE 98; RESP 16
== END 2020-08-16 00:58 | disposition home or self-care (01) ==
LOC: EC 22:22
DX: G43.909 Migraine, unspecified, not intractable, without status migrainosus (principal); Z91.048 Other nonmedicinal substance allergy status; Z91.018 Allergy to other foods
CPT/HCPCS: 81001; 81025; 99284; 96365; 96375 ×3; J1200; J0780; J2930; J1885

== ENCOUNTER 2020-08-21 19:33 | Emergency (ER) | payer OTHER ==
[2020-08-21 19:53] VITALS: RESP 16
[2020-08-21] MEDS ORDERED: SODIUM CHLORIDE 0.9% 1,000 ML IV ONE (20:07)
[2020-08-21] MEDS ORDERED: KETOROLAC 15 MG/ML 1 ML VIAL IVP STA (20:07)
[2020-08-21] MEDS ORDERED: MECLIZINE 12.5 MG TAB PO STA (20:08)
--- NOTE | 2020-08-21 20:13 | ED ---
General Adult HPI - General Chief complaint: Dizziness Stated complaint: Revisit, Ringing in ears Time Seen by Provider: 08/21/20 19:55 Source: patient Mode of arrival: ambulatory Limitations: no limitations - History of Present Illness Initial comments: 25-year-old female patient with past medical history significant for migraine headaches usually accompanied by tunnel vision, presents to the emergency department today for evaluation of dizziness and ringing in her ears. States she does have a slight headache with this. States that she has been in creasingly fatigued and just not feeling well. States she was seen and evaluated here Sunday for migraine with the tunnel vision but did not have these other symptoms. States that she has had multiple brain scans without any significant findings. Patient states that she had an eye exam today and was told her prescription changed since last visit and they were concerned with possible diabetes. She denies any crease thirst or increase in urination. Denies chance of . Checked her blood sugar prior to coming and it was normal. Patient denies any recent rash, fever, chills, cough, shortness of breath, chest pain, abdominal pain, diarrhea, constipation, back pain, numbness, tingling, hematuria, dysuria, urinary urgency, urinary frequency, or any other complaints. - Related Data Previous Rx's Medication Instructions Recorded metroNIDAZOLE 0.75% VAGINAL 1 applic VAGINAL HS 5 Days #5 tube 07/09/18 [Metrogel Vaginal] Meclizine HCl 25 mg PO TID #15 tablet 08/21/20 Allergies Allergy/AdvReac Type Severity Reaction Status Date / Time adhesive tape Allergy Rash/Hives Verified 08/21/20 19:53 gluten Allergy Nausea & Verified 08/21/20 19:53 Vomiting & Diarrhea cinnamon AdvReac Abdominal Verified 08/21/20 19:53 Pain soy AdvReac Abdominal Verified 08/21/20 19:53 Pain Review of Systems ROS Statement: Those systems with pertinent positive or pertinent negative responses have been documented in the HPI. ROS Other: All systems not noted in ROS Statement are negative. Past Medical History Past Medical History: Asthma History of Any Multi-Drug Resistant Organisms: None Reported Past Surgical History: No Surgical Hx Reported Past Anesthesia/Blood Transfusion Reactions: No Reported Reaction Past Psychological History: Anxiety, Depression Smoking Status: Never smoker Past Alcohol Use History: None Reported Past Drug Use History: Marijuana - Past Family History Sister(s) History Unknown: Yes Additional Family Medical History / Comment(s): clinical depression General Exam Limitations: no limitations General appearance: alert, in no apparent distress, other (This is a well- developed, well-nourished adult female patient in no acute distress. Vital signs upon presentation are temperature 97.8F, pulse 101, respirations 16, blo od pressure 107/74, pulse ox 97% on room air.) Eye exam: Present: normal appearance, PERRL, EOMI. Absent: scleral icterus, conjunctival injection, nystagmus, periorbital swelling ENT exam: Present: normal exam, normal oropharynx, mucous membranes moist, TM's normal bilaterally Respiratory exam: Present: normal lung sounds bilaterally. Absent: respiratory distress, wheezes, rales, rhonchi, stridor Cardiovascular Exam: Present: regular rate, normal rhythm, normal heart sounds. Absent: systolic murmur, diastolic murmur, rubs, gallop, clicks GI/Abdominal exam: Present: soft, normal bowel sounds. Absent: distended, tenderness, guarding, rebound, rigid Neurological exam: Present: alert, oriented X3, CN II-XII intact Expanded Speech: Present: fluid speech Cranial nerves: EOM's Intact: Normal Motor strength exam: RUE: 5, LUE: 5, RLE: 5, LLE: 5 Psychiatric exam: Present: normal affect, normal mood Skin exam: Present: warm, dry, intact, normal color. Absent: rash Course Vital Signs 08/21/20 08/21/20 19:48 20:53 Temperature 97.8 F Pulse Rate 101 H 72 Respiratory 16 16 Rate Blood Pressure 107/74 113/79 O2 Sat by Pulse 97 98 Oximetry EKG Findings - EKG Comments: EKG Findings:: EKG obtained at 1957 shows normal sinus rhythm with a ventricular rate of 74, [place] interval 140, QRS duration 76, QT 376, QTc 417. No evidence of ST elevation or depression. Medical Decision Making - Medical Decision Making 25-year-old female patient presents to the emergency department today for evaluation of dizziness, ringing in the ears. She is also reporting mild headache. Does have a history of migraines. Physical examination is unr emarkable. She is neurologically intact with no focal deficits. Labs reviewed and are relatively unremarkable. EKG is unremarkable. Patient was given IV fluids, meclizine, Toradol while in the department. Upon reevaluation she is resting comfortably in bed. States her dizziness is resolved and the ringing in her ears is almost resolved. We did discuss possible vertigo as a cause for her symptoms. She'll be discharged with a prescription for meclizine. She is instructed to follow-up with her primary care physician for recheck in 1-2 days. Return parameters were discussed in detail. She verbalizes understanding and agrees with this plan. - Lab Data Result diagrams: 08/21/20 20:20 08/21/20 20:20 Lab Results 08/21/20 08/21/20 08/21/20 Range/Units 20:20 20:20 21:02 WBC 11.7 H (3.8-10.6) k/uL RBC 4.78 (3.80-5.40) m/uL Hgb 14.7 (11.4-16.0) gm/dL Hct 44.9 (34.0-46.0) % MCV 93.8 (80.0-100.0) fL MCH 30.7 (25.0-35.0) pg MCHC 32.7 (31.0-37.0) g/dL RDW 12.5 (11.5-15.5) % Plt Count 262 (150-450) k/uL MPV 8.4 Neutrophils % 57 % Lymphocytes % 31 % Monocytes % 7 % Eosinophils % 3 % Basophils % 1 % Neutrophils # 6.7 (1.3-7.7) k/uL Lymphocytes # 3.6 (1.0-4.8) k/uL Monocytes # 0.8 (0-1.0) k/uL Eosinophils # 0.4 (0-0.7) k/uL Basophils # 0.1 (0-0.2) k/uL Sodium 140 (137-145) mmol/L Potassium 4.3 (3.5-5.1) mmol/L Chloride 105 (98-107) mmol/L Carbon Dioxide 28 (22-30) mmol/L Anion Gap 7 mmol/L BUN 17 (7-17) mg/dL Creatinine 0.65 (0.52-1.04) mg/dL Est GFR (CKD-EPI)AfAm >90 (>60 ml/min/1.73 sqM) Est GFR (CKD-EPI)NonAf >90 (>60 ml/min/1.73 sqM) Glucose 93 (74-99) mg/dL Calcium 9.4 (8.4-10.2) mg/dL Total Bilirubin 0.3 (0.2-1.3) mg/dL AST 30 (14-36) U/L ALT 39 H (4-34) U/L Alkaline Phosphatase 49 (38-126) U/L Total Protein 7.0 (6.3-8.2) g/dL Albumin 4.0 (3.5-5.0) g/dL Urine Color Light Yellow Urine Appearance Cloudy H (Clear) Urine pH 7.5 (5.0-8.0) Ur Specific [place] 1.020 (1.001-1.035) Urine Protein Negative (Negative) Urine Glucose (UA) Negative (Negative) Urine Ketones Negative (Negative) Urine Blood Negative (Negative) Urine Nitrite Negative (Negative) Urine Bilirubin Negative (Negative) Urine Urobilinogen <2.0 (<2.0) mg/dL Ur Leukocyte Esterase Trace H (Negative) Urine RBC 1 (0-5) /hpf Urine WBC 5 (0-5) /hpf Ur Squamous Epith Cells 8 H (0-4) /hpf Amorphous Sediment Rare H (None) /hpf Urine Mucus Rare H (None) /hpf Urine HCG, Qual (Not Detectd) 08/21/20 Range/Units 21:02 WBC (3.8-10.6) k/uL RBC (3.80-5.40) m/uL Hgb (11.4-16.0) gm/dL Hct (34.0-46.0) % MCV (80.0-100.0) fL MCH (25.0-35.0) pg MCHC (31.0-37.0) g/dL RDW (11.5-15.5) % Plt Count (150-450) k/uL MPV Neutrophils % % Lymphocytes % % Monocytes % % Eosinophils % % Basophils % % Neutrophils # (1.3-7.7) k/uL Lymphocytes # (1.0-4.8) k/uL Monocytes # (0-1.0) k/uL Eosinophils # (0-0.7) k/uL Basophils # (0-0.2) k/uL Sodium (137-145) mmol/L Potassium (3.5-5.1) mmol/L Chloride (98-107) mmol/L Carbon Dioxide (22-30) mmol/L Anion Gap mmol/L BUN (7-17) mg/dL Creatinine (0.52-1.04) mg/dL Est GFR (CKD-EPI)AfAm (>60 ml/min/1.73 sqM) Est GFR (CKD-EPI)NonAf (>60 ml/min/1.73 sqM) Glucose (74-99) mg/dL Calcium (8.4-10.2) mg/dL Total Bilirubin (0.2-1.3) mg/dL AST (14-36) U/L ALT (4-34) U/L Alkaline Phosphatase (38-126) U/L Total Protein (6.3-8.2) g/dL Albumin (3.5-5.0) g/dL Urine Color Urine Appearance (Clear) Urine pH (5.0-8.0) Ur Specific [place] (1.001-1.035) Urine Protein (Negative) Urine Glucose (UA) (Negative) Urine Ketones (Negative) Urine Blood (Negative) Urine Nitrite (Negative) Urine Bilirubin (Negative) Urine Urobilinogen (<2.0) mg/dL Ur Leukocyte Esterase (Negative) Urine RBC (0-5) /hpf Urine WBC (0-5) /hpf Ur Squamous Epith Cells (0-4) /hpf Amorphous Sediment (None) /hpf Urine Mucus (None) /hpf Urine HCG, Qual Not Detected (Not Detectd) Disposition Clinical Impression: Vertigo Disposition: HOME SELF-CARE Condition: Good Instructions (If sedation given, give patient instructions): Vertigo (ED), Dizziness (ED), Tinnitus (ED) Additional Instructions: Increase fluids. Rest. Take medications as directed. Follow-up with her primary care physician for recheck in 1-2 days. Return to the emergency department for any new, worsening, or concerning symptoms. Prescriptions: Meclizine HCl 25 mg PO TID #15 tablet Is patient prescribed a controlled substance at d/c from ED?: No Referrals: Jimy Horner MD [Primary Care Provider] - 1-2 days Time of Disposition: 21:51
[2020-08-21 20:33] LABS: Basophils # (A) 0.1 k/uL (0-0.2); Basophils % (A) 1 %; Eosinophils # (A) 0.4 k/uL (0-0.7); Eosinophils % (A) 3 %; HCT 44.9 % (34.0-46.0); HGB 14.7 gm/dL (11.4-16.0); Lymphocytes # (A) 3.6 k/uL (1.0-4.8); Lymphocytes % (A) 31 %; MCH 30.7 pg (25.0-35.0); MCHC 32.7 g/dL (31.0-37.0); MCV 93.8 fL (80.0-100.0); Mean Platelet Volume 8.4; Monocytes # (A) 0.8 k/uL (0-1.0); Monocytes % (A) 7 %; Neutrophils # (A) 6.7 k/uL (1.3-7.7); Neutrophils % (A) 57 %; Platelet Count 262 k/uL (150-450); RBC 4.78 m/uL (3.80-5.40); RDW 12.5 % (11.5-15.5); WBC 11.7 k/uL (3.8-10.6)
[2020-08-21 20:43] LABS: ALT 39 U/L (4-34); AST 30 U/L (14-36); African American GFR (CKD) >90 (>60 ml/min/1.73 sqM); Alkaline Phosphatase 49 U/L (38-126); Anion Gap 7 mmol/L; Blood Urea Nitrogen 17 mg/dL (7-17); Calcium 9.4 mg/dL (8.4-10.2); Carbon Dioxide 28 mmol/L (22-30); Chloride 105 mmol/L (98-107); Glucose 93 mg/dL (74-99); Non-African American GFR(CKD) >90 (>60 ml/min/1.73 sqM); Potassium 4.3 mmol/L (3.5-5.1); Sodium 140 mmol/L (137-145); Total Bilirubin 0.3 mg/dL (0.2-1.3)
[2020-08-21 21:20] LABS: Amorphous Sediment,Urine Rare /hpf; Appearance,Urine Cloudy (Clear); Bilirubin,Urine Negative (Negative); Blood,Urine Negative (Negative); Color,Urine Light Yellow; Glucose,Urine (UA) Negative (Negative); Ketones,Urine Negative (Negative); Leukocyte Esterase,Urine Trace (Negative); Mucus,Urine Rare /hpf; Nitrite,Urine Negative (Negative); PH, Urine 7.5 (5.0-8.0); Protein,Urine Negative (Negative); RBC,Urine 1 /hpf (0-5); Squamous Epithelial Cell,Urine 8 /hpf (0-4); Urobilinogen,Urine <2.0 mg/dL (<2.0); WBC,Urine 5 /hpf (0-5)
[2020-08-21 21:58] VITALS: BP 103/76; PULSE 68; TEMP 98
== END 2020-08-21 21:52 | disposition home or self-care (01) ==
LOC: EC 19:33
DX: R42 Dizziness and giddiness (principal); H93.13 Tinnitus, bilateral; G43.909 Migraine, unspecified, not intractable, without status migrainosus; Z91.048 Other nonmedicinal substance allergy status; Z91.018 Allergy to other foods
CPT/HCPCS: 36415; 80053; 81001; 81025; 85025; 93005; 96361; 96374; 99284

== ENCOUNTER 2021-05-07 17:07 | Outpatient (CLI) | payer OTHER ==
[2021-05-07 17:39] LABS: Appearance,Urine Cloudy (Clear); Bacteria,Urine Rare /hpf; Bilirubin,Urine Negative (Negative); Blood,Urine Negative (Negative); Color,Urine Light Yellow; Glucose,Urine (UA) Negative (Negative); Ketones,Urine 1+ (Negative); Leukocyte Esterase,Urine Negative (Negative); Mucus,Urine Rare /hpf; Nitrite,Urine Negative (Negative); PH, Urine 6.5 (5.0-8.0); Protein,Urine Negative (Negative); Specific Gravity,Urine 1.004 (1.001-1.035); Squamous Epithelial Cell,Urine 1 /hpf (0-4); Urobilinogen,Urine <2.0 mg/dL (<2.0); WBC,Urine 1 /hpf (0-5)
[2021-05-07 18:05] VITALS: BP 111/70; PULSE 94; RESP 18; TEMP 97.1
--- NOTE | 2021-07-22 09:18 | P.MSEPDOC ---
Presenting Problems - Arrival Data Date of Arrival on Unit: 05/07/21 Time of Arrival on Unit: 17:05 Mode of Transport: Ambulatory - Complaint OB-Reason for Admission/Chief Complaint: Possible Onset of Labor Comment: pelvic pressure, decreased movement, back pain Medical History - Information : 2 Para: 1 Term: 1 : 0 Abortions: Spontaneous or Elective: 0 Number of Living Children: 1 - Gestational Age Gestational Age by SHARMAINE (wks/days): 34 Weeks and 4 Days Review of Systems - Review of Systems Constitutional: No problems Breast: No problems ENT: No problems Cardiovascular: No problems Respiratory: No problems Gastrointestinal: No problems Genitourinary: No problems Musculoskeletal: No problems Neurological: No problems Skin: No problems Vital Signs - Temperature Temperature: 97.1 F Temperature Source: Temporal Artery Scan - Pulse Right Sitting Brachial Pulse Rate: 94 Pulse Assessment Method: Automatic Cuff - Respirations Respiratory Rate: 18 Oxygen Delivery Method: Room Air O2 Sat by Pulse Oximetry: 98 - Blood Pressure Right Arm Sitting Blood Pressure: 111/70 Blood Pressure Mean: 83 Blood Pressure Source: Automatic Cuff Medical Screen Scoring - Cervical Exam Dilation (cm): 0 Effacement (%): 0 Station: -3 - Assessment - Baby A Baseline FHR: 120 Heart Rate - NICHD Category: Category I (Normal) NST: Reactive Physician Notification - Physician Notified Physician Notified Date: 05/07/21 Physician Notified Time: 17:55 Physician: Tono Leiva Order Received: Yes - Notification Comment Comment: Dc home. Follow up with Dr Joya on Sunday as scheduled. Maternal Triage Index - Maternal Triage Index Presenting for scheduled procedure w/no complaint: No - Stat/Priority 1 Stat Priority 1: No - Urgent/Priority 2 Urgent Priority 2: No - Prompt/Priority 3 Prompt Priority 3: Yes Criteria Met for Priority 3: cervix closed, occasional contraction, urine 1+ ketones. Dc home and encouraged to rest and hydrate. Disposition - Disposition OB Disposition: Discharge to home Discharge Date: 05/07/21 Discharge Time: 17:55 I agree with the RN Medical Screening Exam: Yes Physician's MSE Comment: I have neither seen nor examined the patient. Case reviewed; plan agreed upon as documented in EMR&OBIX.: Yes Diagnosis: RELATED CONDITIONS, UNSPECIFIED, THIRD TRIMESTER
== END 2021-05-07 17:55 | disposition home or self-care (01) ==
LOC: FBPOP 17:07
PROVIDERS: ATTEND Obstetrics & Gynecology
DX: O26.893 Other specified pregnancy related conditions, third trimester (principal); M54.9 Dorsalgia, unspecified; Z3A.34 34 weeks gestation of pregnancy; Z91.048 Other nonmedicinal substance allergy status; Z91.018 Allergy to other foods
CPT/HCPCS: 59025; 81001; 99213

== ENCOUNTER 2021-05-30 13:57 | Outpatient (CLI) | payer OTHER ==
[2021-05-30] MEDS ORDERED: ONDANSETRON 4 MG/2 ML VIAL IVP PRN (14:39)
[2021-05-30] MEDS ORDERED: LACTATED RINGERS 1,000 ML IV SCH (14:45)
[2021-05-30 15:18] LABS: Basophils % (A) 0 %; Eosinophils # (A) 0.1 k/uL (0-0.7); Eosinophils % (A) 1 %; HCT 40.1 % (34.0-46.0); HGB 13.3 gm/dL (11.4-16.0); Lymphocytes # (A) 1.3 k/uL (1.0-4.8); Lymphocytes % (A) 16 %; MCH 28.8 pg (25.0-35.0); MCHC 33.2 g/dL (31.0-37.0); Mean Platelet Volume 8.1; Monocytes # (A) 0.7 k/uL (0-1.0); Monocytes % (A) 9 %; Neutrophils # (A) 5.7 k/uL (1.3-7.7); Neutrophils % (A) 72 %; Platelet Count 295 k/uL (150-450); Poikilocytosis Slight; RBC 4.62 m/uL (3.80-5.40); RDW 14.4 % (11.5-15.5)
[2021-05-30 15:40] LABS: African American GFR (CKD) >90 (>60 ml/min/1.73 sqM); Anion Gap 7 mmol/L; Blood Urea Nitrogen 11 mg/dL (7-17); Calcium 8.9 mg/dL (8.4-10.2); Carbon Dioxide 18 mmol/L (22-30); Chloride 109 mmol/L (98-107); Glucose 75 mg/dL (74-99); Non-African American GFR(CKD) >90 (>60 ml/min/1.73 sqM); Sodium 134 mmol/L (137-145)
[2021-05-30 15:55] LABS: Potassium 4.6 mmol/L (3.5-5.1)
[2021-05-30 17:24] VITALS: BP 105/70; PULSE 85; RESP 16; TEMP 98.2
--- NOTE | 2021-07-09 08:59 | P.MSEPDOC ---
Presenting Problems - Arrival Data Date of Arrival on Unit: 05/30/21 Time of Arrival on Unit: 13:57 Mode of Transport: Ambulatory - Complaint OB-Reason for Admission/Chief Complaint: Acute Nausea/Vomiting Medical History - Information : 2 Para: 1 Term: 1 : 0 Abortions: Spontaneous or Elective: 0 Number of Living Children: 1 - Gestational Age Gestational Age by SHARMAINE (wks/days): 37 Weeks and 6 Days Review of Systems - Review of Systems Constitutional: No problems Breast: No problems ENT: No problems Cardiovascular: No problems Respiratory: No problems Gastrointestinal: No problems Genitourinary: No problems Musculoskeletal: No problems Neurological: No problems Skin: No problems Vital Signs - Temperature Temperature: 98.2 F Temperature Source: Oral - Pulse Right Brachial Pulse Rate: 85 Pulse Assessment Method: Automatic Cuff - Respirations Respiratory Rate: 16 Oxygen Delivery Method: Room Air - Blood Pressure Right Arm Blood Pressure: 105/70 Blood Pressure Mean: 81 Blood Pressure Source: Automatic Cuff Medical Screen Scoring - Assessment - Baby A Baseline FHR: 125 Heart Rate - NICHD Category: Category I (Normal) NST: Reactive Physician Notification - Physician Notified Physician Notified Date: 05/30/21 Physician Notified Time: 17:02 Physician: Valerie Aguayo Order Received: Yes - Notification Comment Comment: Dr. Aguayo in unit and given report on pt. Reactive NST. VS WNL. Readback lab. results. Pt is COVID + per pcr test today. Pt n/v is resolved at present and pt reportsfeeling better. Orders recieved to d/c pt to home. Pt has apt with Dr. Joya 06/02. Pt is sched for IOL 06/07. Maternal Triage Index - Maternal Triage Index Presenting for scheduled procedure w/no complaint: No - Stat/Priority 1 Stat Priority 1: No - Urgent/Priority 2 Urgent Priority 2: No - Prompt/Priority 3 Prompt Priority 3: No - Non-Urgent/Priority 4 Non-Urgent Priority 4: Yes Criteria Met for Priority 4: N/V, Congestion Disposition - Disposition OB Disposition: Physician follow up in office, Discharge to home Discharge Date: 05/30/21 Discharge Time: 17:20 I agree with the RN Medical Screening Exam: Yes Case reviewed; plan agreed upon as documented in EMR&OBIX.: Yes Diagnosis: LATE VOMITING OF
== END 2021-05-30 17:20 | disposition home or self-care (01) ==
LOC: FBPOP 13:57
PROVIDERS: ATTEND Obstetrics & Gynecology
DX: O21.2 Late vomiting of pregnancy (principal); Z3A.37 37 weeks gestation of pregnancy; Z91.048 Other nonmedicinal substance allergy status; Z91.018 Allergy to other foods
CPT/HCPCS: 59025; 99214; 96361; 96374; 80048; 85025; 87502; 87635; J2405

== ENCOUNTER 2021-06-02 18:48 | Outpatient (CLI) | payer OTHER ==
[2021-06-02 21:23] VITALS: BP 120/81; PULSE 86; RESP 16; TEMP 97
--- NOTE | 2021-07-22 09:24 | P.MSEPDOC ---
Presenting Problems - Arrival Data Date of Arrival on Unit: 06/02/21 Time of Arrival on Unit: 18:48 Mode of Transport: Ambulatory - Complaint OB-Reason for Admission/Chief Complaint: Possible Onset of Labor Medical History - Information : 2 Para: 1 Term: 1 : 0 Abortions: Spontaneous or Elective: 0 Number of Living Children: 1 - Gestational Age Gestational Age by SHARMAINE (wks/days): 38 Weeks and 2 Days Review of Systems - Review of Systems Constitutional: No problems Breast: No problems ENT: No problems Cardiovascular: No problems Respiratory: No problems Gastrointestinal: No problems Genitourinary: No problems Musculoskeletal: No problems Neurological: No problems Skin: No problems Vital Signs - Temperature Temperature: 97 F Temperature Source: Temporal Artery Scan - Pulse Right Brachial Pulse Rate: 86 Pulse Assessment Method: Automatic Cuff - Respirations Respiratory Rate: 16 Oxygen Delivery Method: Room Air O2 Sat by Pulse Oximetry: 96 - Blood Pressure Right Arm Blood Pressure: 120/81 Blood Pressure Mean: 94 Blood Pressure Source: Automatic Cuff Medical Screen Scoring - Assessment - Baby A Baseline FHR: 130 Heart Rate - NICHD Category: Category I (Normal) NST: Reactive Physician Notification - Physician Notified Physician Notified Date: 06/02/21 Physician Notified Time: 19:56 Physician: Jeanna Joya New Order Received: Yes - Notification Comment Comment: No change in vag exam after 1hr. Orders received to d/c pt to home. Pt sched for IOL 06/07 Maternal Triage Index - Urgent/Priority 2 Urgent Priority 2: No - Prompt/Priority 3 Prompt Priority 3: Yes Criteria Met for Priority 3: >34 weeks, Rule out labor. Disposition - Disposition OB Disposition: Discharge to home Discharge Date: 06/02/21 Discharge Time: 20:30 I agree with the RN Medical Screening Exam: Yes Case reviewed; plan agreed upon as documented in EMR&OBIX.: Yes Diagnosis: FALSE LABOR AT OR AFTER 37 COMPLETED WEEKS OF GESTATION
== END 2021-06-02 20:30 | disposition home or self-care (01) ==
LOC: FBPOP 18:48
PROVIDERS: ATTEND Obstetrics & Gynecology Obstetrics
DX: O47.1 False labor at or after 37 completed weeks of gestation (principal); Z3A.38 38 weeks gestation of pregnancy; Z91.048 Other nonmedicinal substance allergy status; Z91.018 Allergy to other foods
CPT/HCPCS: 59025; 99213

== ENCOUNTER 2021-06-07 05:42 | Inpatient (IN) | payer OTHER ==
[2021-06-07] MEDS ORDERED: TERBUTALINE 1 MG/ML VIAL SQ PRN (06:05)
[2021-06-07] MEDS ORDERED: CARBOPROST TROMETHAMINE 250 MCG/ML 1 ML AMP IM PRN (06:05)
[2021-06-07] MEDS ORDERED: METHYLERGONOVINE 0.2 MG/ML 1 ML AMP IM PRN (06:05)
[2021-06-07] MEDS ORDERED: OXYTOCIN 10 UNIT/ML 1 ML VIAL IM PRN (06:05)
[2021-06-07] MEDS ORDERED: LIDOCAINE 0.5% (PF) 5 MG/ML (50 ML SDV) SQ PRN (06:05)
[2021-06-07] MEDS ORDERED: OXYTOCIN 30 UNITS/500 ML NS 30 UNIT in SALINE 1 500ML.BAG IV SCH ×2 (06:15→21:00)
[2021-06-07 06:37] LABS: Basophils % (A) 0 %; Eosinophils # (A) 0.2 k/uL (0-0.7); Eosinophils % (A) 2 %; HCT 35.8 % (34.0-46.0); Lymphocytes # (A) 2.1 k/uL (1.0-4.8); Lymphocytes % (A) 23 %; MCH 28.7 pg (25.0-35.0); MCHC 33.5 g/dL (31.0-37.0); MCV 85.7 fL (80.0-100.0); Mean Platelet Volume 8.3; Monocytes # (A) 0.8 k/uL (0-1.0); Monocytes % (A) 9 %; Neutrophils # (A) 5.7 k/uL (1.3-7.7); Neutrophils % (A) 64 %; Platelet Count 288 k/uL (150-450); RBC 4.18 m/uL (3.80-5.40); RDW 14.8 % (11.5-15.5)
[2021-06-07] MEDS: LACTATED RINGERS 1,000 ML IV SCH ×4 (06:52→18:28)
[2021-06-07] MEDS ORDERED: BUTORPHANOL 1 MG/ML 1 ML VIAL IV PRN (09:00)
--- NOTE | 2021-06-07 09:00 | P.HPOB ---
History of Present Illness H&P Date: 06/07/21 Chief Complaint: IUP at 39-0/7 weeks this is a 26-year-old 001 at 39 0/7 weeks, estimated due date of 06/14. Patient has been receiving routine care with myself. Patient has a significant past medical history of depression and anxiety. Patient does note good movement. She denies vaginal bleeding or loss of fluid. She is been having irregular contractions for the last few weeks. Patient was diagnosed with COVID-19 approximately 10-14 days ago, patient states all symptoms are resolved and she is feeling well. On bloodwork this patient is a blood type of A+, rubella status immune, B surface antigen is negative, HIV negative, RPR is nonreactive, group beta strep cultures negative. Review of Systems Constitutional: Denies chills, Denies fatigue, Denies fever Ears, nose, mouth and throat: Denies headache Cardiovascular: Reports leg edema Respiratory: Denies dyspnea Gastrointestinal: Denies nausea, Denies vomiting Genitourinary: Reports Past Medical History Past Medical History: Asthma History of Any Multi-Drug Resistant Organisms: None Reported Past Surgical History: No Surgical Hx Reported Past Anesthesia/Blood Transfusion Reactions: No Reported Reaction Past Psychological History: Anxiety, Depression Smoking Status: Never smoker Past Alcohol Use History: None Reported Past Drug Use History: Marijuana - Past Family History Sister(s) History Unknown: Yes Additional Family Medical History / Comment(s): clinical depression Medications and Allergies Home Medications Medication Instructions Recorded Confirmed Type No Known Home Medications 05/30/21 06/02/21 History Allergies Allergy/AdvReac Type Severity Reaction Status Date / Time adhesive tape Allergy Rash/Hives Verified 06/07/21 06:05 gluten Allergy Nausea & Verified 06/07/21 06:05 Vomiting & Diarrhea Exam Osteopathic Statement: *. No significant issues noted on an osteopathic structural exam other than those noted in the History and Physical/Consult. Vital Signs Temp Pulse Resp BP Pulse Ox 06/07/21 06:04 96.6 F L 78 16 107/67 100 Intake and Output 06/06/21 06/07/21 06/07/21 22:59 06:59 14:59 Other: Weight 88.451 kg targeted physical exam is performed in this date in general this a well- nourished well-developed female in no acute distress, breathing is noted to be nonlabored, heart has regular rate and rhythm, abdomen is gravid and appropriate for gestational age, heart tones are noted to be category 1 and she is nati irregularly, cervical exam she is 2/60/-2 station, amniotomy is performed and clear fluid was obtained. Results Result Diagrams: 06/07/21 06:20 Assessment and Plan (1) Term Current Visit: Yes Status: Acute Code(s): Z34.90 - ENCNTR FOR SUPRVSN OF NORMAL , UNSP, UNSP TRIMESTER SNOMED Code(s): 70658924 (2) COVID-19 affecting in third trimester Narrative/Plan: symptoms have resolved Current Visit: Yes Status: Acute Code(s): O98.513 - OTHER VIRAL DISEASES COMPLICATING , THIRD TRIMESTER; U07.1 - COVID-19 SNOMED Code(s): 662417834 Plan: this 26-year-old at 39-0/7 weeks presents for induction of labor. Patient is admitted to labor and delivery and Pitocin induction of labor is begun per hospital protocol. Options for analgesia are discussed including Stadol and epidural. Patient will consider. Anticipate spontaneous vaginal delivery later today.
[2021-06-07] MEDS ORDERED: fentaNYL (PF) 50 MCG/ML 5 ML AMP ONE (13:38)
[2021-06-07] MEDS ORDERED: SODIUM CHLORIDE 0.9% 100 ML BAG ONE (13:38)
[2021-06-07] MEDS ORDERED: ROPIVACAINE 5MG/ML 20ML VIAL ONE (13:38)
[2021-06-07] MEDS ORDERED: LANOLIN CREAM 5 GM TUBE TOPICAL PRN (20:49)
[2021-06-07] MEDS ORDERED: SIMETHICONE 80 MG CHEWABLE PO PRN (20:49)
[2021-06-07] MEDS ORDERED: diphenhydrAMINE 50 MG CAP PO PRN (20:49)
[2021-06-07] MEDS ORDERED: diphenhydrAMINE 50 MG/ML 1 ML VIAL IVP PRN ×2 (20:49)
[2021-06-07] MEDS ORDERED: ZOLPIDEM 5 MG TAB PO PRN (20:49)
[2021-06-07] MEDS ORDERED: diphenhydrAMINE 25 MG CAP PO PRN (20:49)
[2021-06-07] MEDS ORDERED: BENZOCAINE/MENTHOL SPRAY 1 GM/SPRAY AEROSOL TOPICAL PRN (20:49)
[2021-06-07] MEDS ORDERED: HYDROCORTISONE 2.5% RECTAL CREAM 30 GM TUBE RECTAL PRN (20:49)
--- NOTE | 2021-06-07 20:53 | P.PROBDLV ---
Vaginal Delivery Note - . Vaginal Delivery Note: this is a 26-year-old 001 at 39 0/7 weeks that presented to labor and delivery this morning for planned elective induction of labor. Patient was admitted to labor and delivery and Pitocin induction of labor was begun per hospital protocol. Patient underwent amniotomy and clear fluid was obtained. Patient progressed through labor eventually becoming uncomfortable and requesting epidural placement. Epidural was placed without difficulty by the anesthesia department. Patient made slow progress eventually becoming completely dilated. patient was then placed in a modified lithotomy is position and with excellent maternal effort patient delivered the down to a , with continued maternal effort the anterior and posterior shoulder were delivered, the infant was then handed to the maternal abdomen. After two- minute delayed the umbilical cords then doubly clamped and cut. A spontaneous cry was noted. The placenta was then delivered spontaneously intact with a three-vessel cord being noted. The uterus is noted be firm and below the umb ilicus. On inspection the patient's vaginal vault a first-degree vaginal laceration was appreciated. This repaired the usual fashion with 3-0 Rapide. Hemostasis was appreciated after repair. rectal exam was performed after repair was complete and found to be normal in nature. all counts were noted be correct 2 after the delivery. Patient and tolerated delivery well and are resting comfortably. straight blood loss 200 mL. Viable male infant delivered at 2038, weight of 7 lbs. 2 oz. and Apgars of 9 and 9 at one and 5 minutes respectively.
[2021-06-07] MEDS: IBUPROFEN 600 MG TAB PO SCH (21:35)
[2021-06-08] MEDS: ACETAMINOPHEN TAB 325 MG TAB PO PRN ×3 (05:58→19:24)
[2021-06-08] MEDS: SENNOSIDES-DOCUSATE SODIUM 1 EACH TAB PO SCH ×2 (08:24→19:24)
[2021-06-08] MEDS: IBUPROFEN 600 MG TAB PO SCH ×2 (08:24→16:33)
--- NOTE | 2021-06-08 12:22 | P.DS ---
Providers Date of admission: 06/07/21 05:42 Expected date of discharge: 06/08/21 Attending physician: Jeanna Joya Primary care physician: Stated None - Discharge Diagnosis(es) (1) Term Current Visit: Yes Status: Acute (2) COVID-19 affecting in third trimester Current Visit: Yes Status: Acute (3) Obstetric vaginal laceration with first degree perineal laceration Current Visit: Yes Status: Acute (4) Vaginal delivery Current Visit: No Status: Acute Hospital Course: this is a 26-year-old G2 now P2 that presented to labor and delivery yesterday at 39 0/7 weeks for scheduled elective induction of labor. Patient was admitted to labor and delivery and Pitocin induction of labor was begun. Once regular contractions were noted amniotomy was performed and clear fluid was obtained. Patient made slow progress through labor eventually becoming uncomfortable and requesting epidural placement. Epidural was placed without difficulty by the anesthesia department. Patient slowly progressed to complete began pushing and had a normal spontaneous vaginal delivery of a viable male infant at 2038, weight of 7 lbs. 2 oz. and Apgars of 9 and 9 at one and 5 minutes respectively. Patient did sustain a first-degree vaginal laceration which was repaired with 3- 0 Rapide. Patient's course has been uneventful. On this day #1 she is ambulating and voiding without difficulty. She is tolerating regular diet without nausea or vomiting. She states her lochia is minimal. She is breast-feeding without difficulty. She would like discharge home at 24 hours. Patient Condition at Discharge: Good Plan - Discharge Summary Discharge Rx Participant: No New Discharge Prescriptions: No Action No Known Home Medications Discharge Medication List No Known Home Medications 05/30/21 [History] Follow up Appointment(s)/Referral(s): Jeanna Joya DO [Doctor of Osteopathic Medicine] - 4 Weeks Patient Instructions/Handouts: Vaginal Delivery (GEN), Vaginal Delivery (DC) Discharge Disposition: HOME SELF-CARE
[2021-06-08 21:19] VITALS: BP 111/77; PULSE 84; RESP 16; TEMP 97.6
== END 2021-06-08 21:45 | disposition home or self-care (01) | DRG 805 ==
LOC: 4FBP 05:42
PROVIDERS: ADMIT Obstetrics & Gynecology Obstetrics; ATTEND Obstetrics & Gynecology Obstetrics
PROC: 10E0XZZ Delivery of Products of Conception, External Approach (ICD-10-PCS; principal; 2021-06-07)
PROC: 0HQ9XZZ Repair Perineum Skin, External Approach (ICD-10-PCS; 2021-06-07)
PROC: 3E033VJ Introduction of Other Hormone into Peripheral Vein, Percutaneous Approach (ICD-10-PCS; 2021-06-07)
PROC: 10907ZC Drainage of Amniotic Fluid, Therapeutic from Products of Conception, Via Natural or Artificial Opening (ICD-10-PCS; 2021-06-07)
DX: O98.52 Other viral diseases complicating childbirth (principal); U07.1 COVID-19; Z37.0 Single live birth; O70.0 First degree perineal laceration during delivery; O99.344 Other mental disorders complicating childbirth; O99.52 Diseases of the respiratory system complicating childbirth; Z81.8 Family history of other mental and behavioral disorders; Z3A.39 39 weeks gestation of pregnancy; J45.909 Unspecified asthma, uncomplicated; F41.9 Anxiety disorder, unspecified; F32.A Depression, unspecified
CPT/HCPCS: 85025; 86850; 86900; 86901

== ENCOUNTER 2024-06-03 18:18 | Inpatient (IN) | payer OTHER ==
[2024-06-03] MEDS ORDERED: TERBUTALINE 1 MG/ML VIAL SQ PRN (18:36)
[2024-06-03] MEDS ORDERED: METHYLERGONOVINE 0.2 MG/ML 1 ML AMP IM PRN (18:36)
[2024-06-03] MEDS ORDERED: CARBOPROST TROMETHAMINE 250 MCG/ML 1 ML AMP IM PRN (18:36)
[2024-06-03] MEDS ORDERED: LIDOCAINE 0.5% (PF) 5 MG/ML (50 ML SDV) SQ PRN (18:36)
[2024-06-03] MEDS ORDERED: miSOPROStoL 200 MCG TAB RECTAL PRN (18:36)
[2024-06-03] MEDS ORDERED: OXYTOCIN 10 UNIT/ML 1 ML VIAL IM PRN (18:36)
[2024-06-03] MEDS ORDERED: miSOPROStoL 200 MCG TAB PO PRN (18:36)
[2024-06-03] MEDS ORDERED: TRANEXAMIC 1,000 MG/100ML-NACL 1,000 MG in EMPTY BAG 1 BAG IV PRN (18:36)
[2024-06-03 19:11] LABS: Anisocytosis Slight; Basophils # (A) 0.1 k/uL (0-0.2); Basophils % (A) 0 %; Eosinophils # (A) 0.1 k/uL (0-0.7); Eosinophils % (A) 0 %; HCT 35.4 % (34.0-46.0); Hypochromasia Marked; Lymphocytes # (A) 2.3 k/uL (1.0-4.8); Lymphocytes % (A) 15 %; MCH 26.3 pg (25.0-35.0); MCHC 31.1 g/dL (31.0-37.0); MCV 84.4 fL (80.0-100.0); Mean Platelet Volume 7.9; Monocytes # (A) 0.8 k/uL (0-1.0); Monocytes % (A) 6 %; Neutrophils # (A) 11.3 k/uL (1.3-7.7); Neutrophils % (A) 77 %; Platelet Count 292 k/uL (150-450); Poikilocytosis Slight; RBC 4.19 m/uL (3.80-5.40); RDW 16.8 % (11.5-15.5); WBC 14.7 k/uL (3.8-10.6)
[2024-06-03] MEDS: LACTATED RINGERS 1,000 ML IV SCH (20:00)
--- NOTE | 2024-06-03 20:00 | P.HPOB ---
History of Present Illness H&P Date: 06/03/24 Chief Complaint: 38-4/7 weeks, active labor Patient is a 29-year-old 3 para 2-0-0-2 admitted at 38-4/7 weeks as established by last menstrual period and confirmed by second trimester ultrasound. 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 On labor and delivery, all signs are reassuring with a category 1 heart rate tracing. Group B strep status is negative. Obstetrical history: 3 para 2-0-0-2 with 2 term vaginal deliveries without complications. Current statistics are listed in history of present illness. EDC of 06/14/2024 was established by last menstrual period and confirmed by second trimester ultrasound. Laboratory workup demonstrates a blood type of A+ with a negative antibody screen. Rubella status is immune. The remainder of the laboratory workup was within normal limits. 1 hour Glucola was normal and group B strep status is negative. Gynecologic history: Unremarkable with no history of any infections to include STDs aside from the history of HSV for which she has been prophylaxed. There are no current lesions. Review of Systems Review of systems is confined to history of present illness. Past Medical History Past Medical History: Asthma Additional Past Medical History / Comment(s): ADHD History of Any Multi-Drug Resistant Organisms: None Reported Past Surgical History: No Surgical Hx Reported Past Anesthesia/Blood Transfusion Reactions: No Reported Reaction Past Psychological History: ADD/ADHD Smoking Status: Never smoker Past Alcohol Use History: None Reported Past Drug Use History: None Reported - Past Family History Sister(s) History Unknown: Yes Additional Family Medical History / Comment(s): clinical depression Medications and Allergies Home Medications Medication Instructions Recorded Confirmed Type No Known Home Medications 05/30/21 06/02/21 History Allergies Allergy/AdvReac Type Severity Reaction Status Date / Time adhesive tape Allergy Rash/Hives Verified 06/07/21 06:05 egg Allergy Unknown Verified 06/03/24 18:24 gluten Allergy Nausea & Verified 06/07/21 06:05 Vomiting & Diarrhea milk Allergy Unknown Verified 06/03/24 18:24 Exam Vital Signs Temp Pulse Resp BP Pulse Ox 06/03/24 18:47 97.4 F L 93 18 134/70 99 06/03/24 18:33 97.4 F L 93 18 134/70 99 Intake and Output 06/03/24 06/03/24 06/03/24 06:59 14:59 22:59 Other: Weight 78.925 kg In general, this is a well-developed, well-nourished white female in no acute distress as she has just had an epidural catheter placed. Her heart has a regular rhythm and rate without murmur. Her lungs are clear to auscultation bilateral in all felix. Her abdomen is gravid, nondistended, has normal active bowel sounds, soft, nontender, and without any palpable masses aside from the uterine fundus. Her extremities are without any cyanosis, clubbing, or edema and are nontender to palpation bilaterally. Digital cervical examination demonstrates her cervix to be 8 cm dilated, approximately 80% effaced, with the vertex and presentation at -2 station. Artificial rupture of membranes is carried out demonstrating clear fluid. Results Result Diagrams: 06/03/24 19:00 Abnormal Lab Results - Last 24 Hours (Table) 06/03/24 Range/Units 19:00 WBC 14.7 H (3.8-10.6) k/uL Hgb 11.0 L (11.4-16.0) gm/dL RDW 16.8 H (11.5-15.5) % Neutrophils # 11.3 H (1.3-7.7) k/uL Assessment and Plan (1) Active labor at term Current Visit: Yes Status: Acute Code(s): NVK5609 - SNOMED Code(s): 08871439 Plan: Patient has been admitted for active management of labor. An epidural catheter has been placed for analgesia. She will have close maternal and surveillance and expectant management will be practiced. I would anticipate normal spontaneous vaginal delivery in the near future.
[2024-06-03] MEDS: OXYTOCIN 30 UNITS/500 ML NS 30 UNIT in SALINE 1 500ML.BAG IV SCH (20:48)
[2024-06-03] MEDS ORDERED: diphenhydrAMINE 50 MG CAP PO PRN (21:00)
[2024-06-03] MEDS ORDERED: diphenhydrAMINE 50 MG/ML 1 ML VIAL IVP PRN ×2 (21:00)
[2024-06-03] MEDS ORDERED: SIMETHICONE 80 MG CHEWABLE PO PRN (21:00)
[2024-06-03] MEDS ORDERED: diphenhydrAMINE 25 MG CAP PO PRN (21:00)
[2024-06-03] MEDS ORDERED: ZOLPIDEM 5 MG TAB PO PRN (21:00)
[2024-06-03] MEDS ORDERED: BENZOCAINE/MENTHOL SPRAY 1 GM/SPRAY AEROSOL TOPICAL PRN (21:00)
[2024-06-03] MEDS ORDERED: HYDROCORTISONE 2.5% RECTAL CREAM 30 GM TUBE RECTAL PRN (21:00)
--- NOTE | 2024-06-03 21:00 | P.PROBDLV ---
Vaginal Delivery Note - . Vaginal Delivery Note: Patient is a 29-year-old 3 para 202 admitted at 38-3/7 weeks by good dating parameters. She is admitted in active labor with all signs reassuring, category 1 heart rate tracing. Her has been uncomplicated and group B strep status is negative. On labor delivery, she had an epidural catheter placed for analgesia and had artificial rupture of membranes at approximately 8 cm of dilation. She then progressed fairly quickly to complete and pushed over the course of approximately 3-4 contractions to a normal spontaneous vaginal delivery of a viable 7 pound 8.8 ounce baby girl with Apgars of 9 at 1 minute and 9 at 5 minutes delivered in the right occiput anterior position. The placenta was delivered spontaneously, intact, and grossly normal with a grossly normal three-vessel cord inserted approximately 2 to 3 cm from the margin of the placental disc. There were no lacerations of the perineum, vagina, or cervix. Estimated blood loss for the case was 100 mL or less. There were no complications. All sponge, instrument, and needle counts were correct. Both mother and infant are resting comfortably in recovery.
[2024-06-03] MEDS ORDERED: OXYTOCIN 30 UNITS/500 ML NS 30 UNIT in SALINE 1 500ML.BAG IV SCH (21:15)
[2024-06-03 23:43] VITALS: RESP 16
[2024-06-04] MEDS: ACETAMINOPHEN TAB 500 MG TAB PO PRN (03:28)
[2024-06-04 03:37] VITALS: TEMP 98.4
[2024-06-04 06:10] LABS: Anisocytosis Slight; Basophils % (A) 0 %; Eosinophils # (A) 0.1 k/uL (0-0.7); Eosinophils % (A) 0 %; HGB 10.2 gm/dL (11.4-16.0); Hypochromasia Marked; Lymphocytes # (A) 2.4 k/uL (1.0-4.8); Lymphocytes % (A) 18 %; MCHC 31.1 g/dL (31.0-37.0); MCV 83.6 fL (80.0-100.0); Mean Platelet Volume 8.3; Monocytes # (A) 1.1 k/uL (0-1.0); Monocytes % (A) 8 %; Neutrophils % (A) 72 %; Platelet Count 245 k/uL (150-450); Poikilocytosis Slight; RBC 3.94 m/uL (3.80-5.40); RDW 16.8 % (11.5-15.5); WBC 13.8 k/uL (3.8-10.6)
--- NOTE | 2024-06-04 08:11 | P.DS ---
Providers Date of admission: 06/03/24 18:36 Expected date of discharge: 06/04/24 Attending physician: Jeanna Joya Primary care physician: Jeanna Joya - Discharge Diagnosis(es) (1) Active labor at term Current Visit: Yes Status: Acute (2) Vaginal delivery Current Visit: Yes Status: Acute Hospital Course: 29-year-old 3 now para 3 that presented to labor and delivery last evening with complaints of regular painful contractions. Patient was admitted in active labor. Patient was 38-3/7 weeks,. Patient had been receiving routine care which has been essentially uncomplicated. Patient was admitted and requested epidural after admission. Epidural was placed without difficulty. Patient underwent amniotomy and clear fluid was obtained. Patient made quick progress toward complete dilation. Once completely dilated she began pushing and had a normal spontaneous vaginal delivery of a viable female infant, weight of 7 pounds 8.8 ounces. No vaginal lacerations were appreciated after delivery of the . Patient is doing well . On this day #1 she is ambulating and voiding without difficulty. She is tolerating a regular diet without nausea or vomiting. States her pain is well-controlled. She denies concerns and would like discharge home at 24 hours of possible. Patient Condition at Discharge: Good Plan - Discharge Summary New Discharge Prescriptions: No Action No Known Home Medications Discharge Medication List No Known Home Medications 05/30/21 [History] Follow up Appointment(s)/Referral(s): Jeanna Joya DO [Primary Care Provider] - 6 Weeks Patient Instructions/Handouts: Vaginal Delivery (DC), Vaginal Delivery (GEN) Activity/Diet/Wound Care/Special Instructions: No tub baths or intercourse until 6 weeks . [id number] ibuprofen 600 mg or 3 tablets every 6 hours as needed for pain. Discharge Disposition: HOME SELF-CARE
--- NOTE | 2024-06-04 08:25 | P.MSEPDOC ---
Presenting Problems - Arrival Data Date of Arrival on Unit: 06/03/24 Time of Arrival on Unit: 18:45 Mode of Transport: Wheelchair - Complaint OB-Reason for Admission/Chief Complaint: Possible Onset of Labor Comment: 38wks, cx q4mins since 1500 Medical History - Information : 3 Para: 2 Term: 2 : 0 Abortions: Spontaneous or Elective: 0 Number of Living Children: 2 - Gestational Age Gestational Age by SHARMAINE (wks/days): 38 Weeks and 3 Days Review of Systems - Review of Systems Constitutional: No problems Breast: No problems ENT: No problems Cardiovascular: No problems Respiratory: No problems Gastrointestinal: No problems Genitourinary: No problems Musculoskeletal: No problems Neurological: No problems Skin: No problems Vital Signs - Temperature Temperature: 98.4 F Temperature Source: Oral - Pulse Pulse Oximetery Pulse Rate: 64 Pulse Assessment Method: Pulse Oximetry - Respirations Respiratory Rate: 16 Oxygen Delivery Method: Room Air O2 Sat by Pulse Oximetry: 100 - Blood Pressure Right Arm Blood Pressure: 112/72 Blood Pressure Mean: 85 Blood Pressure Source: Automatic Cuff Medical Screen Scoring - Cervical Exam Dilation (cm): 5 Effacement (%): 90 Station: -2 Membranes: Intact - Uterine Contractions Frequency From (mins): 2 Frequency To (mins): 2 Duration From (seconds): 60 Duration To (seconds): 70 Intensity: Moderate Resting: Soft to palpation - Assessment - Baby A Baseline FHR: 120 Heart Rate - NICHD Category: Category I (Normal) NST: Reactive Physician Notification - Physician Notified Physician Notified Date: 06/03/24 Physician Notified Time: 18:33 Physician: Tono Leiva New Order Received: Yes - Notification Comment Comment: Dr. Leiva called, report given on maternal c/o cx since 1500 q4mins. SVE 5/90/-2, head not well applied, BOW felt with SVE. GBS negative, pt would like an epidural. Orders to admit for labor and pt can have an epidural if she wants. Call MD when needed Maternal Triage Index - Maternal Triage Index Presenting for scheduled procedure w/no complaint: No - Stat/Priority 1 Stat Priority 1: No - Urgent/Priority 2 Urgent Priority 2: No - Prompt/Priority 3 Prompt Priority 3: Yes Criteria Met for Priority 3: 38wks, active labor Disposition - Disposition OB Disposition: Admit I agree with the RN Medical Screening Exam: Yes Case reviewed; plan agreed upon as documented in EMR&OBIX.: Yes Diagnosis: ENCOUNTER FOR FULL-TERM UNCOMPLICATED DELIVERY
[2024-06-04] MEDS: SENNOSIDES-DOCUSATE SODIUM 1 EACH TAB PO SCH (08:52)
[2024-06-04] MEDS: IBUPROFEN 800 MG TAB PO PRN (10:23)
[2024-06-04 17:12] VITALS: BP 117/73; PULSE 93
== END 2024-06-04 21:15 | disposition home or self-care (01) | DRG 807 ==
LOC: FBPOP 18:18 → 4FBP 18:36
PROVIDERS: ADMIT Obstetrics & Gynecology; ATTEND Obstetrics & Gynecology Obstetrics
PROC: 10E0XZZ Delivery of Products of Conception, External Approach (ICD-10-PCS; principal; 2024-06-03)
PROC: 10907ZC Drainage of Amniotic Fluid, Therapeutic from Products of Conception, Via Natural or Artificial Opening (ICD-10-PCS; 2024-06-03)
DX: O80 Encounter for full-term uncomplicated delivery (principal); Z37.0 Single live birth; Z3A.38 38 weeks gestation of pregnancy
CPT/HCPCS: 85025; 86850; 86900; 86901; 99213